=== PATIENT | male | born 1940 | race Caucasian/White ===

== ENCOUNTER → 2017-12-23 09:56 | Outpatient (CLI) | payer MEDICARE, OTHER, SELFPAY ==
[2017-12-23 11:16] LABS: BUN Creatinine Ratio 31.1 (6-22); Blood Urea Nitrogen 28 mg/dL (9-20); Calcium 8.8 mg/dL (8.4-10.2); Carbon Dioxide 34 mmol/L (22-32); Chloride 98 mmol/L (98-107); Estimated Glomerular Filt Rate > 60.0 mL/min (>60); Glucose 138 mg/dL (80-110); HEMOLYSIS < 15 (0-50); Sodium 142 mmol/L (137-145)
== END ==
PROVIDERS: PCP Internal Medicine; Visit Provider Internal Medicine Cardiovascular Disease
DX: I10 Essential (primary) hypertension (principal)
CPT/HCPCS: 36415; 80048

== ENCOUNTER → 2018-01-14 07:47 | Outpatient (CLI) | payer MEDICARE, OTHER, SELFPAY ==
--- NOTE | 2018-01-14 07:53 | DI.RAD.S_ITS ---
PROCEDURE: XR KUB INDICATIONS: KIDNEY STONES TECHNIQUE: One view of the abdomen acquired. COMPARISON: [facility], , KUB XRAY (1 VIEW ABDOMEN), 05/13/2017, 8:08. FINDINGS: Surgical changes and devices: Prostate radiation seeds project over the lower pelvis/pubic symphysis.. Bowel: Bowel gas pattern is normal. Soft tissues: 0.6 cm rounded calcification projecting over the right renal silhouette/hemiabdomen. Visualized solid organ contours appear normal in size. Bones: No suspicious bony lesions. IMPRESSION: 0.6 cm rounded calcification projecting over the right renal silhouette/hemiabdomen, which may represent a nephrolith. Dictated by: Anshu Wu M.D. on 01/14/2018 at 8:36 Approved by: Anshu Wu M.D. on 01/14/2018 at 8:41
[2018-01-14 09:18] LABS: Prostate Specific Antigen < 0.064 ng/mL (0.10-4.00)
== END ==
PROVIDERS: PCP Internal Medicine; Visit Provider Specialist
DX: N20.0 Calculus of kidney (principal); N40.1 Benign prostatic hyperplasia with lower urinary tract symptoms
CPT/HCPCS: 36415; 74018; 84153

== ENCOUNTER 2018-02-04 11:43 | Emergency (ER) | payer MEDICARE, OTHER, SELFPAY ==
[2018-02-04 11:46] VITALS: BP 151/91; PULSE 68; RESP 18; TEMP 36.8; O2SAT 95
--- NOTE | 2018-02-04 12:47 | ED_ITS ---
HPI - Weakness General Chief complaint: Weakness Stated complaint: IRREGULAR HEART RATE AND FEELING WEAK Time Seen by Provider: 02/04/18 12:45 Source: patient Mode of arrival: ambulatory Limitations: no limitations History of Present Illness HPI Narrative: 77-year-old male here for evaluation of palpitations and weakness this morning. He states that it was a fairly sudden onset. He states that he started to improve while sitting in the emergency department waiting room. Denies any chest pain or shortness of breath or lightheadedness or headache or vision changes. States that he has had a ?arrhythmia? in the past but was told by his treating and pumping supervisor that everything was fine. Patient called his primary care doctor's office and the nurse there told him to come to the emergency department. He states that while at home when he was feeling the irregular heartbeat he put himself on his home monitor and said that the heart rate was ?slow? and irregular. Related Data Home Medications Medication Instructions Recorded Confirmed ibuprofen [Advil] 200 mg PO Q4HP PRN #0 09/13/17 loratadine [Claritin] 10 mg PO QDAYP PRN #0 09/13/17 felodipine 1 tab PO DAILY 02/04/18 02/04/18 furosemide 20 mg PO DAILY 02/04/18 02/04/18 Previous Rx's Medication Instructions Recorded ASPIRIN (Aspir-Low) 81 mg PO QDAY 30 Days #0 09/26/12 nitroglycerin [Nitrostat] 0.4 mg SUBLINGUAL PRN PRN #1 bot 02/15/17 pantoprazole 40 mg PO QDAY #90 tab 02/20/17 fluticasone-salmeterol [Advair 1 puff INH BID #14 dose 07/15/17 Diskus] atorvastatin 40 mg PO QDAY #90 tab 08/05/17 albuterol sulfate [Proventil HFA] 2 puff INH QIDP #8.5 gm 10/07/17 levothyroxine 75 mcg tablet 75 mcg PO QAM #90 tab 12/03/17 hydrocodone 5 mg-acetaminophen 325 2 tab PO Q4HP PRN #60 tab 12/24/17 mg tablet Allergies Allergy/AdvReac Type Severity Reaction Status Date / Time carvedilol [CARVEDILOL] AdvReac Intermediate fatigue Unverified 10/02/17 12:12 felodipine AdvReac Intermediate fatigue Verified 12/04/17 08:52 losartan [LOSARTAN] AdvReac Intermediate fatigue Unverified 10/02/17 12:12 metoprolol [METOPROLOL] AdvReac Intermediate fatigue Unverified 10/02/17 12:12 valsartan [VALSARTAN] AdvReac Intermediate fatigue Unverified 10/02/17 12:12 amlodipine [AMLODIPINE] AdvReac Mild EDEMA Unverified 10/02/17 12:12 lisinopril [LISINOPRIL] AdvReac Mild HIVES/ Unverified 12/04/17 08:53 ITCHING Review of Systems Constitutional Reports fatigue, Denies fever(s), Denies headache(s) and Reports malaise ENT Ears, Nose, Mouth, and Throat: Denies headache(s) Cardiovascular Denies chest pain, Denies diaphoresis, Denies syncope, Denies rapid heart rate, Reports irregular heart rhythm, Denies leg edema, Reports palpitations, Denies dyspnea and Reports slow heart rate Respiratory Denies cough, Denies dyspnea and Denies wheezing Gastrointestinal Gastrointestinal: Denies abdominal pain, Denies nausea and Denies vomiting Genitourinary Denies dysuria Musculoskeletal Denies myalgias and Denies arthralgias Integumentary/Breasts Denies lesions and Denies rash Neurologic Denies confusion, Denies syncope and Denies headache(s) Psychiatric Denies confusion Endocrine Reports fatigue and Reports palpitations Hematologic/Lymphatic Denies easy bleeding and Denies easy bruising Allergic/Immunologic Denies wheezing [facility] Medical History Malignant neoplasm of prostate (Chronic 02/18/12) Essential hypertension (Chronic 02/18/12) Mixed hyperlipidemia (Chronic 02/18/12) Mild intermittent asthma without complication (Chronic 02/18/12) Gastroesophageal reflux disease without esophagitis (Chronic 02/18/12) History of renal calculi (Chronic 06/23/12) Anxiety (Chronic 06/23/12) Impotence (Chronic 06/23/12) Acquired hypothyroidism (Chronic 06/23/12) 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) Surgical History History of angioplasty (08/18/12) Family History Father Heart disease Mother Heart disease Social History Smoking Status: Never smoker Exam Initial Vital Signs Initial Vital Signs: Vital Signs Temperature 98.2 F 02/04/18 11:46 Pulse Rate 68 02/04/18 11:46 Respiratory Rate 18 02/04/18 11:46 Blood Pressure 151/91 H 02/04/18 11:46 Pulse Oximetry 95 02/04/18 11:46 Const General: cooperative, healthy appearing, comfortable, well developed, well groomed and No acute distress Orientation: alert and oriented x3 HENMT Head: normal to inspection and normocephalic Resp Effort & Inspection: normal respiratory effort Auscultation: clear to auscultation bilaterally Cardio Rate: regular rate Rhythm: regular rhythm Heart Sounds: no murmurs Pulses: radial pulses present GI Inspection: non-distended Palpation: soft, No firm and No tender Skin Lesions: no lesions Rashes: no rashes Neuro General: alert, awake and oriented x3 Cognition: normal cognition Speech: speech normal Motor: muscle tone normal throughout Sensory Exam: no sensory deficits noted Extrem General: normal to inspection and capillary refill normal Psych Appearance: grossly normal and well kempt Course Orders Ordered: ED Orders 02/04/18 12:47 EKG-12 Lead Stat 02/04/18 13:00 Basic Metabolic Panel Stat Complete Blood Count AUTO DIFF Stat Thyroid Stimulating Hormone Stat Troponin I Stat Vital Signs - 8 hr 02/04/18 11:46 02/04/18 12:58 02/04/18 13:36 Temperature 98.2 F Pulse Rate 68 63 74 Respiratory Rate 18 11 L 17 Blood Pressure 151/91 H Blood Pressure [Left Arm] 159/76 H 147/75 H Pulse Oximetry 95 96 96 MDM - Weakness Lab Data Attestation: I reviewed the patient's lab results. Result diagrams: 02/04/18 13:00 02/04/18 13:00 Lab Results 02/04/18 02/04/18 02/04/18 Range/Units 13:00 13:00 13:00 WBC 5.0 (4.5-11.0) X10^3/uL RBC 4.70 (4.5-5.9) X10^6/uL Hgb 15.6 (13.5-17.5) g/dL Hct 45.1 (41-53) % MCV 96.0 (80-100) fL MCH 33.1 (26-34) PG MCHC 34.5 (30-36) % RDW 12.8 (11.6-14.8) % Plt Count 167 (150-400) X10^3/uL Neut % (Auto) 58.7 (50-75) % Lymph % (Auto) 29.2 (25-40) % Nolan % (Auto) 9.7 (3-14) % Eos % (Auto) 1.5 L (2-4) % Baso % (Auto) 0.9 (0-2) % Neut # (Auto) 3000 (0404-6308) /uL Sodium 140 (137-145) mmol/L Potassium 4.0 (3.4-5.1) mmol/L Chloride 99 (98-107) mmol/L Carbon Dioxide 33 H (22-32) mmol/L BUN 21 H (9-20) mg/dL Creatinine 1.00 (0.66-1.25) mg/dL Estimated GFR > 60.0 (>60) mL/min BUN/Creatinine Ratio 21.0 (6-22) Glucose 100 (80-110) mg/dL Calcium 9.2 (8.4-10.2) mg/dL Troponin I < 0.012 (0.01-0.034) ng/mL TSH 2.33 (0.47-4.68) uIU/mL ECG Data Attestation: I personally reviewed and interpreted this ECG as follows: Prior ECG tracings: not available for review Interpretation: Sinus rhythm Ventricular rate is 70 Normal QRS Normal QTC Occasional PACs No ST T wave changes MDM Narrative Medical decision making narrative: Patient symptom free while here in the emergency department. Denied any chest pain or dizziness or lightheadedness or shortness of breath during these episodes. Has had a history of ?arrhythmia in the past. EKG relatively unremarkable. I discussed all this with the patient. He is going to continue all of his medications as directed. He is going to call his treating and pumping supervisor to discuss the indications for a Holter monitor. He was given return precautions. He expressed understanding and agreement with plan Discharge Plan Departure Patient Disposition: Home, Self-Care Clinical Impression: Palpitations Instructions: DI for Palpitations Activity Restrictions/Additional Instructions: Continue all of your medications as directed. Contact your treating and pumping supervisor to discuss the indications for a Holter monitor. Return to the emergency department at any point for new symptoms, lightheadedness, chest pain, shortness of breath, passing out, or any other concerning symptoms. Prescriptions: No Action ASPIRIN (Aspir-Low) 81 mg PO QDAY 30 Days Qty: 0 RF: 0 nitroglycerin [Nitrostat] 0.4 MG tablet, sublingual 0.4 mg Sublingual PRN PRNQty: 1 RF: 1 pantoprazole 40 MG tablet,delayed release (DR/EC) 40 mg PO QDAY Qty: 90 RF: 3 fluticasone-salmeterol [Advair Diskus] 250 MCG/50 MCG blister with device 1 puff INH BID Qty: 14 RF: 3 atorvastatin 40 MG tablet 40 mg PO QDAY Qty: 90 RF: 3 loratadine [Claritin] 10 MG tablet 10 mg PO QDAYP PRNQty: 0 RF: 0 ibuprofen [Advil] 200 MG tablet 200 mg PO Q4HP PRNQty: 0 RF: 0 albuterol sulfate [Proventil HFA] 90 MCG/PUFF HFA aerosol inhaler 2 puff INH QIDP Qty: 8.5 RF: 0 levothyroxine [Synthroid] 75 mcg tablet 75 mcg PO QAM Qty: 90 RF: 1 hydrocodone-acetaminophen [[place]] 5-325 mg tablet 2 tab PO Q4HP PRN (Reason: pain) Qty: 60 RF: 0 felodipine 5 mg tablet extended release 24 hr 1 tab PO DAILY RF: 0 furosemide 20 mg tablet 20 mg PO DAILY RF: 0
[2018-02-04 12:58] VITALS: BP 159/76; PULSE 63; RESP 11; O2SAT 96
[2018-02-04 13:29] LABS: Add Manual Diff / Slide Review NO; Basophils Percent Auto 0.9 % (0-2); Eosinophils Percent Auto 1.5 % (2-4); Hematocrit 45.1 % (41-53); Hemoglobin 15.6 g/dL (13.5-17.5); Lymphocytes Percent Auto 29.2 % (25-40); Mean Corpuscular HGB Conc 34.5 % (30-36); Mean Corpuscular Hemoglobin 33.1 PG (26-34); Monocytes Percent Auto 9.7 % (3-14); Neutrophils Absolute Auto 3000 /uL (3000-5900); Neutrophils Percent Auto 58.7 % (50-75); Platelet Count 167 X10^3/uL (150-400); Red Cell Distribution Width 12.8 % (11.6-14.8)
[2018-02-04 13:31] LABS: Blood Urea Nitrogen 21 mg/dL (9-20); Calcium 9.2 mg/dL (8.4-10.2); Carbon Dioxide 33 mmol/L (22-32); Chloride 99 mmol/L (98-107); Estimated Glomerular Filt Rate > 60.0 mL/min (>60); Glucose 100 mg/dL (80-110); HEMOLYSIS < 15 (0-50); Sodium 140 mmol/L (137-145)
[2018-02-04 13:36] VITALS: BP 147/75; PULSE 74; RESP 17; O2SAT 96
[2018-02-04 14:00] VITALS: BP 153/76; PULSE 73; RESP 22; O2SAT 95
[2018-02-04 14:08] LABS: Thyroid Stimulating Hormone 2.33 uIU/mL (0.47-4.68)
[2018-02-04 14:10] LABS: Troponin I < 0.012 ng/mL (0.01-0.034)
== END 2018-02-04 14:40 | disposition home or self-care (01) ==
PROVIDERS: Emergency Provider Emergency Medicine; PCP Internal Medicine
DX: R00.2 Palpitations (principal)
CPT/HCPCS: 36591; 80048; 84443; 84484; 85025; 93005; 93010; 99283; 99284

== ENCOUNTER → 2018-02-19 09:30 | Outpatient (CLI) | payer SELFPAY ==
--- NOTE | 2018-03-27 09:55 | PM.CARDMON.1 ---
Senior Technical Business Analyst Report Referral & Results Date Patient Seen: 02/19/18 Requesting provider: Bakari Arrington Indication: Arrhythmia and bradycardia Duration of monitoring (days): 12 Diary information: No patient diary entries, there are 12 triggered events associated with sinus rhythm PVCs PACs, ventricular bigeminy and ventricular trigeminy Data: Minimum heart rate identified was 45 beats per minute at 10:38 on 03/01/2018 Maximum sinus heart rate was 105 beats per minute at 19:02 on 02/24/2018 Maximum overall heart rate was 125 beats per minute at 22:08 on 02/24/2018 associated with a brief run of SVT 1.3% of identified heartbeats were supraventricular ectopic in origin and 6.6% were ventricular ectopic in origin Impression: No serious dysrhythmias identified. Patient with some significant PVCs including up to almost minute half run of ventricular bigeminy. Patient triggered events seem to be associated primarily with ventricular premature depolarizations Clinical correlation suggested
--- NOTE | 2018-03-27 09:58 | P.HOLT.S_ITS ---
Recycling Tech Report Referral & Results Date Patient Seen: 02/19/18 Requesting provider: Bakari Arrington Indication: Arrhythmia and bradycardia Duration of monitoring (days): 12 Diary information: No patient diary entries, there are 12 triggered events associated with sinus rhythm PVCs PACs, ventricular bigeminy and ventricular trigeminy Data: Minimum heart rate identified was 45 beats per minute at 10:38 on 2017 Maximum sinus heart rate was 105 beats per minute at 19:02 on 02/24/2018 Maximum overall heart rate was 125 beats per minute at 22:08 on 02/24/2018 associated with a brief run of SVT 1.3% of identified heartbeats were supraventricular ectopic in origin and 6.6% were ventricular ectopic in origin Impression: No serious dysrhythmias identified. Patient with some significant PVCs including up to almost minute half run of ventricular bigeminy. Patient triggered events seem to be associated primarily with ventricular premature depolarizations Clinical correlation suggested
== END ==
PROVIDERS: PCP Internal Medicine; Visit Provider Internal Medicine
DX: I49.9 Cardiac arrhythmia, unspecified (principal)

== ENCOUNTER 2018-02-22 10:30 | Emergency (ER) | payer MEDICARE, OTHER, SELFPAY ==
[2018-02-22] VITALS (9 sets, daily range): BP systolic 103–169; BP diastolic 48–88; PULSE 58–95; RESP 14–22; TEMP 36.6; O2SAT 95–99
--- NOTE | 2018-02-22 10:43 | DI.RAD.S_ITS ---
PROCEDURE: XR CHEST 1V INDICATIONS: chest pain TECHNIQUE: One view of the chest was acquired. COMPARISON: None. FINDINGS: Surgical changes and devices: Pacer device is projected over the left hemithorax. Lungs and pleura: No pleural effusions or pneumothorax. Lungs are clear. Mediastinum: Mediastinal contours appear normal. Heart size is normal. Bones and chest wall: No suspicious bony lesions. Overlying soft tissues appear unremarkable. IMPRESSION: No acute cardiopulmonary findings. Dictated by: Evita Dale M.D. on 02/22/2018 at 11:27 Approved by: Evita Dale M.D. on 02/22/2018 at 11:28
[2018-02-22 11:03] LABS: Add Manual Diff / Slide Review NO; Basophils Percent Auto 0.8 % (0-2); Eosinophils Percent Auto 1.3 % (2-4); Hematocrit 45.1 % (41-53); Hemoglobin 15.7 g/dL (13.5-17.5); Lymphocytes Percent Auto 29.5 % (25-40); Mean Corpuscular HGB Conc 34.7 % (30-36); Mean Corpuscular Hemoglobin 33.3 PG (26-34); Mean Corpuscular Volume 95.9 fL (80-100); Neutrophils Absolute Auto 3300 /uL (3000-5900); Neutrophils Percent Auto 60.4 % (50-75); Platelet Count 155 X10^3/uL (150-400); Red Blood Cell Count 4.71 X10^6/uL (4.5-5.9); Red Cell Distribution Width 12.6 % (11.6-14.8); White Blood Cell Count 5.4 X10^3/uL (4.5-11.0)
[2018-02-22 11:09] LABS: INR 1.1 (0.9-1.3)
[2018-02-22 11:11] LABS: PTT Partial Thromboplastin Tim 29 SECONDS (26.4-36.2)
[2018-02-22 11:17] LABS: Alanine Aminotransferase 31 IU/L (21-72); Albumin Globulin Ratio 1.4 (1.0-2.8); Alkaline Phosphatase 80 U/L (38-126); Aspartate Aminotransferase 26 IU/L (17-59); Bilirubin Total 0.8 mg/dL (0.2-1.3); Blood Urea Nitrogen 23 mg/dL (9-20); Calcium 9.2 mg/dL (8.4-10.2); Carbon Dioxide 31 mmol/L (22-32); Chloride 103 mmol/L (98-107); Creatine Kinase 62 U/L (55-170); Estimated Glomerular Filt Rate > 60.0 mL/min (>60); Globulin 2.8 g/dL (1.7-4.1); Glucose 123 mg/dL (80-110); HEMOLYSIS 15 (0-50); Lipase 40 U/L (23-300); Sodium 142 mmol/L (137-145); Total Protein 6.8 g/dL (6.3-8.2)
[2018-02-22 11:31] LABS: Troponin I < 0.012 ng/mL (0.01-0.034)
--- NOTE | 2018-02-22 11:35 | ED.WEAKNESS ---
HPI - Weakness General Chief complaint: Weakness Stated complaint: heart beating in the 30s Time Seen by Provider: 02/22/18 11:15 History of Present Illness HPI Narrative: Patient is a 77-year-old male who presents with lightheadedness dizziness and a low heart rate. He actually it is Xeno patch placed 2 days ago for palpitations yesterday and today he has had episodes where he has felt extremely lightheaded never passed out weakness blood pressure and his heart rate and noted that his heart rate is in the 30s. He has never passed out. He denies chest pain he does get some shortness of breath he has these episodes. He has 3 recordings which were this morning at 5 or a.m., at 10:04 a.m. and 10:06 a.m.. His heart rate seems to be within normal limits here in the emergency department MD Complaint: generalized weakness Related Data Home Medications Medication Instructions Recorded Confirmed ibuprofen [Advil] 200 mg PO Q4HP PRN #0 09/13/17 02/06/18 loratadine [Claritin] 10 mg PO QDAYP PRN #0 09/13/17 02/06/18 furosemide 20 mg PO DAILY 02/04/18 02/06/18 Previous Rx's Medication Instructions Recorded ASPIRIN (Aspir-Low) 81 mg PO QDAY 30 Days #0 09/26/12 nitroglycerin [Nitrostat] 0.4 mg SUBLINGUAL PRN PRN #1 bot 02/15/17 pantoprazole 40 mg PO QDAY #90 tab 02/20/17 fluticasone-salmeterol [Advair 1 puff INH BID #14 dose 07/15/17 Diskus] atorvastatin 40 mg PO QDAY #90 tab 08/05/17 albuterol sulfate [Proventil HFA] 2 puff INH QIDP #8.5 gm 10/07/17 levothyroxine 75 mcg tablet 75 mcg PO QAM #90 tab 12/03/17 hydrocodone 5 mg-acetaminophen 325 2 tab PO Q4HP PRN #60 tab 12/24/17 mg tablet Allergies Allergy/AdvReac Type Severity Reaction Status Date / Time carvedilol [CARVEDILOL] AdvReac Intermediate fatigue Verified 02/22/18 10:43 felodipine AdvReac Intermediate fatigue Verified 02/22/18 10:43 losartan [LOSARTAN] AdvReac Intermediate fatigue Verified 02/22/18 10:43 metoprolol [METOPROLOL] AdvReac Intermediate fatigue Verified 02/22/18 10:43 valsartan [VALSARTAN] AdvReac Intermediate fatigue Verified 02/22/18 10:43 amlodipine [AMLODIPINE] AdvReac Mild EDEMA Verified 02/22/18 10:43 lisinopril [LISINOPRIL] AdvReac Mild HIVES/ Verified 02/22/18 10:43 ITCHING Review of Systems Review of Systems All systems reviewed & are unremarkable except as noted in HPI and below Constitutional Denies chills, Denies fever(s), Denies lethargy and Denies weakness Eyes Denies change in vision, Denies eye discharge, Denies irritation and Denies loss of vision ENT Ears, Nose, Mouth, and Throat: Denies change in voice, Denies neck pain and Denies sore throat Cardiovascular Denies syncope, Reports lightheadedness, Denies dyspnea and Denies dyspnea on exertion Respiratory Denies cough, Denies dyspnea, Denies dyspnea on exertion and Denies wheezing Gastrointestinal Gastrointestinal: Denies abdominal pain, Denies change in bowel habits, Denies diarrhea, Denies nausea and Denies vomiting Genitourinary Denies hematuria, Denies flank pain, Denies urinary incontinence and Denies urinary urgency Musculoskeletal Denies neck pain Integumentary/Breasts Denies pruritus, Denies erythema, Denies rash and Denies wounds Neurologic Denies syncope, Denies loss of vision and Denies weakness Allergic/Immunologic Denies wheezing [facility] Medical History 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/12) Mixed hyperlipidemia (Chronic 02/18/12) Essential hypertension (Chronic 02/18/12) Acquired hypothyroidism (Chronic 08/21/07) Colon polyps (Resolved 2001) Erectile dysfunction (Chronic 1997) Panic attacks (Chronic 1969) Degenerative lumbar disc (Chronic 1964) Diastasis recti (Chronic) Chronic back pain (Chronic 1989) Hayfever (Chronic 1967) Osteoarthritis (Chronic) Plantar fasciitis (Chronic) Hearing loss (Chronic) Malignant neoplasm of prostate (Inactive 2005) Mild intermittent asthma without complication (Chronic 02/18/12) Gastroesophageal reflux disease without esophagitis (Chronic 1983) History of renal calculi (Chronic 06/23/12) Anxiety (Chronic 06/23/12) Impotence (Chronic 06/23/12) Cataract (Resolved) Chicken pox (Resolved) Frequent UTI (Resolved) History of brachytherapy (Resolved 2006) Measles (Resolved) Mumps (Resolved) Myocardial infarction (Resolved 2012) Normal cardiac stress test (Resolved 2002) Surgical History History of YAG laser capsulotomy of lens (Resolved) History of angioplasty (Resolved 08/18/12) History of colonoscopy with polypectomy (Resolved 2001) History of esophagogastroduodenoscopy (EGD) (Resolved 1995) History of tonsillectomy (Resolved 1944) History of vasectomy (Resolved 1976) Normal colonoscopy (Resolved 1984) Status post laser cataract surgery of both eyes (Resolved 2005) Social History Smoking Status: Never smoker Exam Initial Vital Signs Initial Vital Signs: Vital Signs Temperature 97.8 F 02/22/18 10:41 Pulse Rate 74 02/22/18 10:41 Respiratory Rate 14 02/22/18 10:41 Blood Pressure 169/88 H 02/22/18 10:41 Pulse Oximetry 99 02/22/18 10:41 GENERAL: Alert well-appearing and in no acute distress. HEENT: Head atraumatic,EOMI, pupils reactive, CARDIOVASCULAR: Regular rate and rhythm without murmurs, rubs or gallops. RESPIRATORY: Breath sounds equal bilaterally, no wheezes rales or rhonchi. ABDOMEN: Soft, nontender. Normoactive bowel sounds all 4 quadrants. No guarding or rebound. : No CVA tenderness EXTREMITIES: Normal range of motion, no clubbing or edema. Neurovascularly intact NEUROLOGICAL: Alert and oriented x4.Normal gait and speech. Cranial nerves II through XII grossly intact. SKIN: Warm, dry, no laceration, no petechiae, no rashes or lesions. Course Orders Ordered: ED Orders 02/22/18 10:43 XR chest 1V Stat EKG-12 Lead Stat 02/22/18 10:56 BNP [B Type Natriuretic Peptide] Stat Complete Blood Count AUTO DIFF Stat Comprehensive Metabolic Panel Stat Lipase Stat Partial Thromboplastin Time Stat Prothrombin Time INR Stat Troponin & CK Cardiac Panel Stat 09/01/18 10:59 Thyroid Stimulating Hormone Stat Discontinued Medications Hydrocodone Bitart/Acetaminophen ([place] 5/325) 1 tab PO NOW ONE Stop: 02/22/18 15:44 Last Admin: 02/22/18 15:47 Dose: 1 tab Consultations Consultation #1: Dr. Shi cardiology has been updated patient's symptoms and test results. Agrees that patient needs to be observed on tele. Dr. Storey is his physician is happy to have the hospitalist accept him over at [facility], if [place] [facility] unable to Time: 13:52 Consultation #2: I spoke with Dr. Arrington, the patient's primary physician he does agree that patient would best be suited all over at [facility] for pacemaker if needed Consultation #3: Dr. Nuno hospitalist over at [facility] has happily accepted patient. Vital Signs - 8 hr 02/22/18 10:41 02/22/18 10:58 02/22/18 11:17 Temperature 97.8 F Pulse Rate 74 74 67 Respiratory Rate 14 18 20 Blood Pressure 169/88 H Blood Pressure [Left Arm] 149/72 H 103/67 Pulse Oximetry 99 97 97 02/22/18 12:18 02/22/18 13:46 02/22/18 14:15 Temperature Pulse Rate 74 58 L 71 Respiratory Rate 18 16 18 Blood Pressure Blood Pressure [Left Arm] 148/59 H 152/72 H 140/62 Pulse Oximetry 95 98 95 02/22/18 15:19 02/22/18 16:30 Temperature Pulse Rate 69 95 H Respiratory Rate 22 16 Blood Pressure Blood Pressure [Left Arm] 140/52 L 147/48 H Pulse Oximetry 95 96 MDM - Weakness Lab Data Attestation: I reviewed the patient's lab results. Result diagrams: 02/22/18 10:56 02/22/18 10:56 Lab Results 02/22/18 02/22/18 02/22/18 Range/Units 10:56 10:56 10:56 WBC 5.4 (4.5-11.0) X10^3/uL RBC 4.71 (4.5-5.9) X10^6/uL Hgb 15.7 (13.5-17.5) g/dL Hct 45.1 (41-53) % MCV 95.9 (80-100) fL MCH 33.3 (26-34) PG MCHC 34.7 (30-36) % RDW 12.6 (11.6-14.8) % Plt Count 155 (150-400) X10^3/uL Neut % (Auto) 60.4 (50-75) % Lymph % (Auto) 29.5 (25-40) % Ward % (Auto) 8.0 (3-14) % Eos % (Auto) 1.3 L (2-4) % Baso % (Auto) 0.8 (0-2) % Neut # (Auto) 3300 (3531-2393) /uL PT 12.0 (10.1-12.7) SECONDS INR 1.1 (0.9-1.3) APTT 29 (26.4-36.2) SECONDS Sodium 142 (137-145) mmol/L Potassium 4.0 (3.4-5.1) mmol/L Chloride 103 (98-107) mmol/L Carbon Dioxide 31 (22-32) mmol/L BUN 23 H (9-20) mg/dL Creatinine 1.00 (0.66-1.25) mg/dL Estimated GFR > 60.0 (>60) mL/min BUN/Creatinine Ratio 23.0 H (6-22) Glucose 123 H (80-110) mg/dL Calcium 9.2 (8.4-10.2) mg/dL Total Bilirubin 0.8 (0.2-1.3) mg/dL AST 26 (17-59) IU/L ALT 31 (21-72) IU/L Alkaline Phosphatase 80 (38-126) U/L Total Creatine Kinase 62 (55-170) U/L Troponin I < 0.012 (0.01-0.034) ng/mL B-Natriuretic Peptide (<100) Total Protein 6.8 (6.3-8.2) g/dL Albumin 4.0 (3.5-5.0) g/dL Globulin 2.8 (1.7-4.1) g/dL Albumin/Globulin Ratio 1.4 (1.0-2.8) Lipase 40 (23-300) U/L TSH (0.47-4.68) uIU/mL 02/22/18 02/22/18 Range/Units 10:56 10:59 WBC (4.5-11.0) X10^3/uL RBC (4.5-5.9) X10^6/uL Hgb (13.5-17.5) g/dL Hct (41-53) % MCV (80-100) fL MCH (26-34) PG MCHC (30-36) % RDW (11.6-14.8) % Plt Count (150-400) X10^3/uL Neut % (Auto) (50-75) % Lymph % (Auto) (25-40) % Ward % (Auto) (3-14) % Eos % (Auto) (2-4) % Baso % (Auto) (0-2) % Neut # (Auto) (2447-9896) /uL PT (10.1-12.7) SECONDS INR (0.9-1.3) APTT (26.4-36.2) SECONDS Sodium (137-145) mmol/L Potassium (3.4-5.1) mmol/L Chloride (98-107) mmol/L Carbon Dioxide (22-32) mmol/L BUN (9-20) mg/dL Creatinine (0.66-1.25) mg/dL Estimated GFR (>60) mL/min BUN/Creatinine Ratio (6-22) Glucose (80-110) mg/dL Calcium (8.4-10.2) mg/dL Total Bilirubin (0.2-1.3) mg/dL AST (17-59) IU/L ALT (21-72) IU/L Alkaline Phosphatase (38-126) U/L Total Creatine Kinase (55-170) U/L Troponin I (0.01-0.034) ng/mL B-Natriuretic Peptide 64.1 (<100) Total Protein (6.3-8.2) g/dL Albumin (3.5-5.0) g/dL Globulin (1.7-4.1) g/dL Albumin/Globulin Ratio (1.0-2.8) Lipase (23-300) U/L TSH 1.77 D (0.47-4.68) uIU/mL Imaging Data Chest x-ray: Radiologist's impression: PROCEDURE: XR CHEST 1V INDICATIONS: chest pain TECHNIQUE: One view of the chest was acquired. COMPARISON: None. FINDINGS: Surgical changes and devices: Pacer device is projected over the left hemithorax. Lungs and pleura: No pleural effusions or pneumothorax. Lungs are clear. Mediastinum: Mediastinal contours appear normal. Heart size is normal. Bones and chest wall: No suspicious bony lesions. Overlying soft tissues appear unremarkable. IMPRESSION: No acute cardiopulmonary findings. Dictated by: Evita Dale M.D. on 02/22/2018 at 11:27 ECG Data Attestation: I personally reviewed and interpreted this ECG as follows: Prior ECG tracings: available for review Interpretation: Sinus rhythm with PACs no ST changes or T-wave inversions similar to previous EKG. MDM Narrative Medical decision making narrative: Patient does have episodes of bradycardia but they seem to be PACs which do not perfused. The oxygen pulse ox and heart rate monitor her with both with good waveform show different readings. The pulse ox will show of heart rate in the 30s and the monitor shows frequent PAC. These are the times that he does feel dizzy and lightheaded. They do not last long enough to get a blood pressure so these are very brief episodes. Patient is not on any AV dionne blocking agents. Discharge Plan Departure Patient Disposition: [facility] Clinical Impression: Bradycardia Prescriptions: No Action ASPIRIN (Aspir-Low) 81 mg PO QDAY 30 Days Qty: 0 RF: 0 nitroglycerin [Nitrostat] 0.4 MG tablet, sublingual 0.4 mg Sublingual PRN PRNQty: 1 RF: 1 pantoprazole 40 MG tablet,delayed release (DR/EC) 40 mg PO QDAY Qty: 90 RF: 3 fluticasone-salmeterol [Advair Diskus] 250 MCG/50 MCG blister with device 1 puff INH BID Qty: 14 RF: 3 atorvastatin 40 MG tablet 40 mg PO QDAY Qty: 90 RF: 3 loratadine [Claritin] 10 MG tablet 10 mg PO QDAYP PRNQty: 0 RF: 0 ibuprofen [Advil] 200 MG tablet 200 mg PO Q4HP PRNQty: 0 RF: 0 albuterol sulfate [Proventil HFA] 90 MCG/PUFF HFA aerosol inhaler 2 puff INH QIDP Qty: 8.5 RF: 0 levothyroxine [Synthroid] 75 mcg tablet 75 mcg PO QAM Qty: 90 RF: 1 hydrocodone-acetaminophen [[place]] 5-325 mg tablet 2 tab PO Q4HP PRN (Reason: pain) Qty: 60 RF: 0 furosemide 20 mg tablet 20 mg PO DAILY RF: 0
[2018-02-22 11:50] LABS: B Type Natriuretic Peptide 64.1 (<100)
--- NOTE | 2018-02-22 13:20 | ED_ITS ---
HPI - Weakness General Chief complaint: Weakness Stated complaint: heart beating in the 30s Time Seen by Provider: 02/22/18 11:15 History of Present Illness HPI Narrative: Patient is a 77-year-old male who presents with lightheadedness dizziness and a low heart rate. He actually it is Xeno patch placed 2 days ago for palpitations yesterday and today he has had episodes where he has felt extremely lightheaded never passed out weakness blood pressure and his heart rate and noted that his heart rate is in the 30s. He has never passed out. He denies chest pain he does get some shortness of breath he has these episodes. He has 3 recordings which were this morning at 5 or a.m., at 10:04 a.m. and 10 :06 a.m.. His heart rate seems to be within normal limits here in the emergency department MD Complaint: generalized weakness Related Data Home Medications Medication Instructions Recorded Confirmed ibuprofen [Advil] 200 mg PO Q4HP PRN #0 09/13/17 02/06/18 loratadine [Claritin] 10 mg PO QDAYP PRN #0 09/13/17 02/06/18 furosemide 20 mg PO DAILY 02/04/18 02/06/18 Previous Rx's Medication Instructions Recorded ASPIRIN (Aspir-Low) 81 mg PO QDAY 30 Days #0 09/26/12 nitroglycerin [Nitrostat] 0.4 mg SUBLINGUAL PRN PRN #1 bot 02/15/17 pantoprazole 40 mg PO QDAY #90 tab 02/20/17 fluticasone-salmeterol [Advair 1 puff INH BID #14 dose 07/15/17 Diskus] atorvastatin 40 mg PO QDAY #90 tab 08/05/17 albuterol sulfate [Proventil HFA] 2 puff INH QIDP #8.5 gm 10/07/17 levothyroxine 75 mcg tablet 75 mcg PO QAM #90 tab 12/03/17 hydrocodone 5 mg-acetaminophen 325 2 tab PO Q4HP PRN #60 tab 12/24/17 mg tablet Allergies Allergy/AdvReac Type Severity Reaction Status Date / Time carvedilol [CARVEDILOL] AdvReac Intermediate fatigue Verified 02/22/18 10:43 felodipine AdvReac Intermediate fatigue Verified 02/22/18 10:43 losartan [LOSARTAN] AdvReac Intermediate fatigue Verified 02/22/18 10:43 metoprolol [METOPROLOL] AdvReac Intermediate fatigue Verified 02/22/18 10:43 valsartan [VALSARTAN] AdvReac Intermediate fatigue Verified 02/22/18 10:43 amlodipine [AMLODIPINE] AdvReac Mild EDEMA Verified 02/22/18 10:43 lisinopril [LISINOPRIL] AdvReac Mild HIVES/ Verified 02/22/18 10:43 ITCHING Review of Systems Review of Systems All systems reviewed & are unremarkable except as noted in HPI and below Constitutional Denies chills, Denies fever(s), Denies lethargy and Denies weakness Eyes Denies change in vision, Denies eye discharge, Denies irritation and Denies loss of vision ENT Ears, Nose, Mouth, and Throat: Denies change in voice, Denies neck pain and Denies sore throat Cardiovascular Denies syncope, Reports lightheadedness, Denies dyspnea and Denies dyspnea on exertion Respiratory Denies cough, Denies dyspnea, Denies dyspnea on exertion and Denies wheezing Gastrointestinal Gastrointestinal: Denies abdominal pain, Denies change in bowel habits, Denies diarrhea, Denies nausea and Denies vomiting Genitourinary Denies hematuria, Denies flank pain, Denies urinary incontinence and Denies urinary urgency Musculoskeletal Denies neck pain Integumentary/Breasts Denies pruritus, Denies erythema, Denies rash and Denies wounds Neurologic Denies syncope, Denies loss of vision and Denies weakness Allergic/Immunologic Denies wheezing [facility] Medical History 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 (Chronic 09/04/12) Mixed hyperlipidemia (Chronic 02/18/12) Essential hypertension (Chronic 02/18/12) Acquired hypothyroidism (Chronic 08/21/07) Colon polyps (Resolved 2001) Erectile dysfunction (Chronic 1997) Panic attacks (Chronic 1969) Degenerative lumbar disc (Chronic 1964) Diastasis recti (Chronic) Chronic back pain (Chronic 1989) Hayfever (Chronic 1967) Osteoarthritis (Chronic) Plantar fasciitis (Chronic) Hearing loss (Chronic) Malignant neoplasm of prostate (Inactive 2005) Mild intermittent asthma without complication (Chronic 02/18/12) Gastroesophageal reflux disease without esophagitis (Chronic 1983) History of renal calculi (Chronic 06/23/12) Anxiety (Chronic 06/23/12) Impotence (Chronic 06/23/12) Cataract (Resolved) Chicken pox (Resolved) Frequent UTI (Resolved) History of brachytherapy (Resolved 2006) Measles (Resolved) Mumps (Resolved) Myocardial infarction (Resolved 2012) Normal cardiac stress test (Resolved 2002) Surgical History History of YAG laser capsulotomy of lens (Resolved) History of angioplasty (Resolved 08/18/12) History of colonoscopy with polypectomy (Resolved 2001) History of esophagogastroduodenoscopy (EGD) (Resolved 1995) History of tonsillectomy (Resolved 1944) History of vasectomy (Resolved 1976) Normal colonoscopy (Resolved 1984) Status post laser cataract surgery of both eyes (Resolved 2005) Social History Smoking Status: Never smoker Exam Initial Vital Signs Initial Vital Signs: Vital Signs Temperature 97.8 F 02/22/18 10:41 Pulse Rate 74 02/22/18 10:41 Respiratory Rate 14 02/22/18 10:41 Blood Pressure 169/88 H 02/22/18 10:41 Pulse Oximetry 99 02/22/18 10:41 GENERAL: Alert well-appearing and in no acute distress. HEENT: Head atraumatic,EOMI, pupils reactive, CARDIOVASCULAR: Regular rate and rhythm without murmurs, rubs or gallops. RESPIRATORY: Breath sounds equal bilaterally, no wheezes rales or rhonchi. ABDOMEN: Soft, nontender. Normoactive bowel sounds all 4 quadrants. No guarding or rebound. : No CVA tenderness EXTREMITIES: Normal range of motion, no clubbing or edema. Neurovascularly intact NEUROLOGICAL: Alert and oriented x4.Normal gait and speech. Cranial nerves II through XII grossly intact. SKIN: Warm, dry, no laceration, no petechiae, no rashes or lesions. Course Orders Ordered: ED Orders 02/22/18 10:43 XR chest 1V Stat EKG-12 Lead Stat 02/22/18 10:56 BNP [B Type Natriuretic Peptide] Stat Complete Blood Count AUTO DIFF Stat Comprehensive Metabolic Panel Stat Lipase Stat Partial Thromboplastin Time Stat Prothrombin Time INR Stat Troponin & CK Cardiac Panel Stat 09/01/18 10:59 Thyroid Stimulating Hormone Stat Discontinued Medications Hydrocodone Bitart/Acetaminophen ([place] 5/325) 1 tab PO NOW ONE Stop: 02/22/18 15:44 Last Admin: 02/22/18 15:47 Dose: 1 tab Consultations Consultation #1: Dr. Shi cardiology has been updated patient's symptoms and test results. Agrees that patient needs to be observed on tele. Dr. Storey is his physician is happy to have the hospitalist accept him over at [facility], if [place] to Time: 13:52 Consultation #2: I spoke with Dr. Arrington, the patient's primary physician he does agree that patient would best be suited all over at [facility] for pacemaker if needed Consultation #3: Dr. Nuno hospitalist over at [facility] has happily accepted patient. Vital Signs - 8 hr 02/22/18 10:41 02/22/18 10:58 02/22/18 11:17 Temperature 97.8 F Pulse Rate 74 74 67 Respiratory Rate 14 18 20 Blood Pressure 169/88 H Blood Pressure [Left Arm] 149/72 H 103/67 Pulse Oximetry 99 97 97 02/22/18 12:18 02/22/18 13:46 02/22/18 14:15 Temperature Pulse Rate 74 58 L 71 Respiratory Rate 18 16 18 Blood Pressure Blood Pressure [Left Arm] 148/59 H 152/72 H 140/62 Pulse Oximetry 95 98 95 02/22/18 15:19 02/22/18 16:30 Temperature Pulse Rate 69 95 H Respiratory Rate 22 16 Blood Pressure Blood Pressure [Left Arm] 140/52 L 147/48 H Pulse Oximetry 95 96 MDM - Weakness Lab Data Attestation: I reviewed the patient's lab results. Result diagrams: 02/22/18 10:56 02/22/18 10:56 Lab Results 02/22/18 02/22/18 02/22/18 Range/Units 10:56 10:56 10:56 WBC 5.4 (4.5-11.0) X10^3/uL RBC 4.71 (4.5-5.9) X10^6/uL Hgb 15.7 (13.5-17.5) g/dL Hct 45.1 (41-53) % MCV 95.9 (80-100) fL MCH 33.3 (26-34) PG MCHC 34.7 (30-36) % RDW 12.6 (11.6-14.8) % Plt Count 155 (150-400) X10^3/uL Neut % (Auto) 60.4 (50-75) % Lymph % (Auto) 29.5 (25-40) % [place] % (Auto) 8.0 (3-14) % Eos % (Auto) 1.3 L (2-4) % Baso % (Auto) 0.8 (0-2) % Neut # (Auto) 3300 (2744-1947) /uL PT 12.0 (10.1-12.7) SECONDS INR 1.1 (0.9-1.3) APTT 29 (26.4-36.2) SECONDS Sodium 142 (137-145) mmol/L Potassium 4.0 (3.4-5.1) mmol/L Chloride 103 (98-107) mmol/L Carbon Dioxide 31 (22-32) mmol/L BUN 23 H (9-20) mg/dL Creatinine 1.00 (0.66-1.25) mg/dL Estimated GFR > 60.0 (>60) mL/min BUN/Creatinine Ratio 23.0 H (6-22) Glucose 123 H (80-110) mg/dL Calcium 9.2 (8.4-10.2) mg/dL Total Bilirubin 0.8 (0.2-1.3) mg/dL AST 26 (17-59) IU/L ALT 31 (21-72) IU/L Alkaline Phosphatase 80 (38-126) U/L Total Creatine Kinase 62 (55-170) U/L Troponin I < 0.012 (0.01-0.034) ng/mL B-Natriuretic Peptide (<100) Total Protein 6.8 (6.3-8.2) g/dL Albumin 4.0 (3.5-5.0) g/dL Globulin 2.8 (1.7-4.1) g/dL Albumin/Globulin Ratio 1.4 (1.0-2.8) Lipase 40 (23-300) U/L TSH (0.47-4.68) uIU/mL 02/22/18 02/22/18 Range/Units 10:56 10:59 WBC (4.5-11.0) X10^3/uL RBC (4.5-5.9) X10^6/uL Hgb (13.5-17.5) g/dL Hct (41-53) % MCV (80-100) fL MCH (26-34) PG MCHC (30-36) % RDW (11.6-14.8) % Plt Count (150-400) X10^3/uL Neut % (Auto) (50-75) % Lymph % (Auto) (25-40) % [place] % (Auto) (3-14) % Eos % (Auto) (2-4) % Baso % (Auto) (0-2) % Neut # (Auto) (2320-7434) /uL PT (10.1-12.7) SECONDS INR (0.9-1.3) APTT (26.4-36.2) SECONDS Sodium (137-145) mmol/L Potassium (3.4-5.1) mmol/L Chloride (98-107) mmol/L Carbon Dioxide (22-32) mmol/L BUN (9-20) mg/dL Creatinine (0.66-1.25) mg/dL Estimated GFR (>60) mL/min BUN/Creatinine Ratio (6-22) Glucose (80-110) mg/dL Calcium (8.4-10.2) mg/dL Total Bilirubin (0.2-1.3) mg/dL AST (17-59) IU/L ALT (21-72) IU/L Alkaline Phosphatase (38-126) U/L Total Creatine Kinase (55-170) U/L Troponin I (0.01-0.034) ng/mL B-Natriuretic Peptide 64.1 (<100) Total Protein (6.3-8.2) g/dL Albumin (3.5-5.0) g/dL Globulin (1.7-4.1) g/dL Albumin/Globulin Ratio (1.0-2.8) Lipase (23-300) U/L TSH 1.77 D (0.47-4.68) uIU/mL Imaging Data Chest x-ray: Radiologist's impression: PROCEDURE: XR CHEST 1V INDICATIONS: chest pain TECHNIQUE: One view of the chest was acquired. COMPARISON: None. FINDINGS: Surgical changes and devices: Pacer device is projected over the left hemithorax. Lungs and pleura: No pleural effusions or pneumothorax. Lungs are clear. Mediastinum: Mediastinal contours appear normal. Heart size is normal. Bones and chest wall: No suspicious bony lesions. Overlying soft tissues appear unremarkable. IMPRESSION: No acute cardiopulmonary findings. Dictated by: Evita Dale M.D. on 02/22/2018 at 11:27 ECG Data Attestation: I personally reviewed and interpreted this ECG as follows: Prior ECG tracings: available for review Interpretation: Sinus rhythm with PACs no ST changes or T-wave inversions similar to previous EKG. MDM Narrative Medical decision making narrative: Patient does have episodes of bradycardia but they seem to be PACs which do not perfused. The oxygen pulse ox and heart rate monitor her with both with good waveform show different readings. The pulse ox will show of heart rate in the 30s and the monitor shows frequent PAC. These are the times that he does feel dizzy and lightheaded. They do not last long enough to get a blood pressure so these are very brief episodes. Patient is not on any AV dionen blocking agents. Discharge Plan Departure Patient Disposition: [facility] Clinical Impression: Bradycardia Prescriptions: No Action ASPIRIN (Aspir-Low) 81 mg PO QDAY 30 Days Qty: 0 RF: 0 nitroglycerin [Nitrostat] 0.4 MG tablet, sublingual 0.4 mg Sublingual PRN PRNQty: 1 RF: 1 pantoprazole 40 MG tablet,delayed release (DR/EC) 40 mg PO QDAY Qty: 90 RF: 3 fluticasone-salmeterol [Advair Diskus] 250 MCG/50 MCG blister with device 1 puff INH BID Qty: 14 RF: 3 atorvastatin 40 MG tablet 40 mg PO QDAY Qty: 90 RF: 3 loratadine [Claritin] 10 MG tablet 10 mg PO QDAYP PRNQty: 0 RF: 0 ibuprofen [Advil] 200 MG tablet 200 mg PO Q4HP PRNQty: 0 RF: 0 albuterol sulfate [Proventil HFA] 90 MCG/PUFF HFA aerosol inhaler 2 puff INH QIDP Qty: 8.5 RF: 0 levothyroxine [Synthroid] 75 mcg tablet 75 mcg PO QAM Qty: 90 RF: 1 hydrocodone-acetaminophen [[place]] 5-325 mg tablet 2 tab PO Q4HP PRN (Reason: pain) Qty: 60 RF: 0 furosemide 20 mg tablet 20 mg PO DAILY RF: 0
[2018-02-22 14:26] LABS: Thyroid Stimulating Hormone 1.77 uIU/mL (0.47-4.68)
[2018-02-22] MEDS: HYDROCODONE/ACET 5/325 TABLET 1 TAB PO (15:47)
== END 2018-02-22 17:30 | disposition short-term general hospital (02) ==
PROVIDERS: Emergency Provider Emergency Medicine; PCP Internal Medicine
DX: R00.1 Bradycardia, unspecified (principal)
CPT/HCPCS: 36591; 71045; 80053; 82550; 82553; 83690; 83880; 84443; 84484; 85025; 85610; 85730; 93005; 93010; 99284; 99285

== ENCOUNTER → 2018-10-14 11:04 | Outpatient (CLI) | payer MEDICARE, OTHER, SELFPAY ==
[2018-10-14 12:46] LABS: Free T4, Direct Thyroxine 1.22 ng/dL (0.78-2.19)
[2018-10-14 13:00] LABS: Thyroid Stimulating Hormone 3.33 uIU/mL (0.47-4.68)
== END ==
PROVIDERS: PCP Internal Medicine; Visit Provider Nurse Practitioner
DX: E03.9 Hypothyroidism, unspecified (principal)
CPT/HCPCS: 36415; 84439; 84443

== ENCOUNTER → 2019-01-27 11:31 | Outpatient (CLI) | payer MEDICARE, OTHER, SELFPAY ==
--- NOTE | 2019-01-27 | DI.RAD.S_ITS ---
PROCEDURE: XR KUB INDICATIONS: KIDNEY STONES TECHNIQUE: One view of the abdomen acquired. COMPARISON: [facility], CR, XR KUB, 01/14/2018, 7:57. [facility], CR, KUB XRAY (1 VIEW ABDOMEN), 05/13/2017, 8:08. FINDINGS: Surgical changes and devices: None. Bowel: Bowel gas pattern is normal. Soft tissues: No new suspicious abdominal calcifications and a 6 mm peripherally calcified radiodensity in the right upper quadrant is again noted, with an appearance more likely representing gallstone than renal collecting system stone given its central lucency. Visualized solid organ contours appear normal in size. Bones: No suspicious bony lesions. IMPRESSION: A urinary tract stone is not found. What likely is a 6 mm faintly peripherally calcified gallstone is seen at the right upper quadrant. This was previously present. Dictated by: Florentino Coronado M.D. on 01/27/2019 at 12:57 Approved by: Florentino Coronado M.D. on 01/27/2019 at 12:59
[2019-01-27 12:55] LABS: Prostate Specific Antigen < 0.064 ng/mL (0.10-4.00)
== END ==
PROVIDERS: PCP Internal Medicine; Visit Provider Specialist
DX: N20.0 Calculus of kidney (principal); N40.1 Benign prostatic hyperplasia with lower urinary tract symptoms
CPT/HCPCS: 36415; 74018; 84153

== ENCOUNTER → 2019-02-20 10:08 | Outpatient (CLI) | payer MEDICARE, OTHER, SELFPAY ==
[2019-02-20 10:54] LABS: BUN Creatinine Ratio 26.7 (6-22); Blood Urea Nitrogen 24 mg/dL (9-20); Calcium 9.4 mg/dL (8.4-10.2); Carbon Dioxide 34 mmol/L (22-32); Chloride 98 mmol/L (98-107); Estimated Glomerular Filt Rate > 60.0 mL/min (>60); Glucose 100 mg/dL (80-110); HEMOLYSIS < 15 (0-50); Magnesium 2.3 mg/dL (1.6-2.3); Potassium 4.2 mmol/L (3.4-5.1); Sodium 141 mmol/L (137-145)
== END ==
PROVIDERS: PCP Internal Medicine; Visit Provider Internal Medicine
DX: I10 Essential (primary) hypertension (principal)
CPT/HCPCS: 36415; 80048; 83735

== ENCOUNTER → 2019-04-27 09:51 | Outpatient (CLI) | payer MEDICARE, OTHER, SELFPAY ==
[2019-04-27 10:55] LABS: BUN Creatinine Ratio 27.8 (6-22); Blood Urea Nitrogen 25 mg/dL (9-20); Calcium 9.1 mg/dL (8.4-10.2); Carbon Dioxide 33 mmol/L (22-32); Chloride 99 mmol/L (98-107); Estimated Glomerular Filt Rate > 60.0 mL/min (>60); Glucose 94 mg/dL (80-110); HEMOLYSIS < 15 (0-50); Potassium 4.2 mmol/L (3.4-5.1); Sodium 139 mmol/L (137-145)
== END ==
PROVIDERS: Family Provider Internal Medicine; PCP Internal Medicine; Visit Provider Hospitalist
DX: I50.32 Chronic diastolic (congestive) heart failure (principal)
CPT/HCPCS: 36415; 80048

== ENCOUNTER → 2019-07-15 12:01 | Outpatient (CLI) | payer MEDICARE, OTHER, SELFPAY ==
--- NOTE | 2019-07-15 | DI.MRI.S_ITS ---
PROCEDURE: MR SHOULDER LT WO CON INDICATIONS: Unspecified dislocation of left shoulder joint TECHNIQUE: Noncontrast oblique coronal T2 fast spin echo with fat saturation, oblique sagittal T1 spin echo and T2 fast spin echo with fat saturation, axial T1 spin echo and T2 fast spin echo with fat saturation through the shoulder. COMPARISON: [facility], CR, XR SHOULDER 2+ VIEWS LEFT, 07/08/2019, 8:13. FINDINGS: Image quality: Excellent. Rotator cuff: The supraspinatus, infraspinatus, and subscapularis tendons appear intact throughout but there is mild edema within the middle and lateral thirds of the supraspinatus tendon beneath the acromioclavicular joint and lateral aspect of the acromion. Chronic impingement is the likely cause of fat appearance.. Sagittal images demonstrate no muscle atrophy. Bones and bursae: No bone marrow contusions or fractures are seen along the humeral head, but there is marrow edema along the anterior glenoid from approximately the 6:00 osition cephalad through the 9:00 position with slight irregularity of the subchondral cortical margin of the inferior glenoid suspicious for representing an osteochondral slight impaction injury (series 6 image 15). There is mild acromioclavicular joint degeneration. The acromion demonstrates conventional anatomy, without an os acromiale. No pathologic subacromial-subdeltoid or subcoracoid bursal fluid is present. Capsule and soft tissues: In the absence of intra-articular contrast, the labrum and glenohumeral ligaments appear intact. The long head of the biceps tendon demonstrates normal location and morphology. The rotator interval appears normal, without fibrosis. The coracohumeral ligament is normal in thickness. IMPRESSION: Next 1. A rotator cuff tear is not found but there is chronic impingement by osseous and fibrous hypertrophy from the a.c. joint degeneration and also inferior tilt of the lateral acromion, causing edema within and immediately adjacent to the normal course of the supraspinatus tendon best seen below the lateral acromion border (series 8 image 10). No effusion or loose body is found. 2. There is focal edema within the anterior inferior glenoid marrow space, tracking cephalad through the 9:00 position, without definite cortical fracture. A small osteochondral impaction is suspected, seen on axial imaging series 6 image 15. A Hill-Sachs deformity is not associated. The appearance is most likely a manifestation of prior anterior subcoracoid dislocation. Dictated by: Florentino Coronado M.D. on 07/15/2019 at 15:54 Approved by: Florentino Coronado M.D. on 07/15/2019 at 16:02
== END ==
PROVIDERS: PCP Internal Medicine; Visit Provider Orthopaedic Surgery
DX: S43.005A Unspecified dislocation of left shoulder joint, initial encounter (principal); M75.42 Impingement syndrome of left shoulder; M19.012 Primary osteoarthritis, left shoulder
CPT/HCPCS: 73221

== ENCOUNTER → 2019-08-14 09:09 | Outpatient (CLI) | payer MEDICARE, OTHER, SELFPAY ==
--- NOTE | 2019-08-14 09:11 | DI.RAD.S_ITS ---
PROCEDURE: XR CHEST 2V INDICATIONS: cough, asthma exac, decreased lung sounds right LL TECHNIQUE: 2 views of the chest were acquired. COMPARISON: [facility], RA, XR CHEST 1V, 02/22/2018, 11:08. [facility], RA, CHEST 2 VIEW, 01/27/2016, 11:58. FINDINGS: Surgical changes and devices: None. Lungs and pleura: Lungs are clear considering chronic asymmetric elevation of the right hemidiaphragm. No pleural effusions or pneumothorax. Mediastinum: Mediastinal contours are normal. Heart size is normal. Bones and chest wall: No suspicious bony abnormalities. Soft tissues appear unremarkable. IMPRESSION: No pneumonia found, chronic elevation of the right hemidiaphragm. Dictated by: Florentino Coronado M.D. on 08/14/2019 at 10:19 Approved by: Florentino Coronado M.D. on 08/14/2019 at 10:20
== END ==
PROVIDERS: PCP Internal Medicine; Referring Provider Nurse Practitioner Family; Visit Provider Nurse Practitioner Family
DX: J45.901 Unspecified asthma with (acute) exacerbation (principal); R05 Cough; R09.89 Other specified symptoms and signs involving the circulatory and respiratory systems
CPT/HCPCS: 71046

== ENCOUNTER → 2020-01-27 10:06 | Outpatient (CLI) | payer MEDICARE, OTHER, SELFPAY ==
[2020-01-27 12:20] LABS: Alanine Aminotransferase 22 IU/L (<50); Albumin 4.1 g/dL (3.5-5.0); Albumin Globulin Ratio 1.6 (1.0-2.8); Alkaline Phosphatase 87 U/L (38-126); Aspartate Aminotransferase 25 IU/L (17-59); BUN Creatinine Ratio 21.4 (6-22); Bilirubin Total 0.8 mg/dL (0.2-1.3); Blood Urea Nitrogen 18 mg/dL (9-20); Calcium 9.1 mg/dL (8.4-10.2); Carbon Dioxide 29 mmol/L (22-32); Chloride 100 mmol/L (98-107); Cholesterol 127 mg/dL (140-199); Estimated Glomerular Filt Rate > 60.0 mL/min (>60); Globulin 2.5 g/dL (1.7-4.1); Glucose 77 mg/dL (80-110); HDL Cholesterol 62 mg/dL (40-60); HEMOLYSIS < 15 (0-50); LDL Cholesterol Calculated 42 mg/dL (<100); Magnesium 2.7 mg/dL (1.6-2.3); Potassium 4.1 mmol/L (3.4-5.1); Sodium 137 mmol/L (137-145); Total Protein 6.6 g/dL (6.3-8.2); Triglycerides 117 mg/dL (35-150)
[2020-01-27 12:37] LABS: Free T4, Direct Thyroxine 1.22 ng/dL (0.78-2.19)
[2020-01-27 12:51] LABS: Thyroid Stimulating Hormone 3.31 uIU/mL (0.47-4.68)
== END ==
PROVIDERS: PCP Internal Medicine; Referring Provider Hospitalist; Visit Provider Hospitalist
DX: I50.32 Chronic diastolic (congestive) heart failure (principal); E04.1 Nontoxic single thyroid nodule; E03.9 Hypothyroidism, unspecified; E78.2 Mixed hyperlipidemia; I10 Essential (primary) hypertension
CPT/HCPCS: 80053; 80061; 83735; 84439; 84443

== ENCOUNTER → 2020-03-08 09:24 | Outpatient (CLI) | payer MEDICARE, OTHER, SELFPAY ==
--- NOTE | 2020-03-08 09:29 | DI.RAD.S_ITS ---
PROCEDURE: XR KUB INDICATIONS: kidney stone TECHNIQUE: One view of the abdomen acquired. COMPARISON: [facility], CT, ABDOMEN/PELVIS WITH CONTRAST, 02/19/2017, 13:46. [facility], CR, XR KUB, 01/27/2019, 11:50. FINDINGS: Surgical changes and devices: Prostate brachytherapy seeds.. Bowel: Bowel gas pattern is normal. Unchanged appearance of a 6 mm faint calcification in the right upper quadrant is unchanged Bones: No suspicious bony lesions. Spondylosis and levocurvature IMPRESSION: Overall, grossly unchanged examination. No definite new or suspicious abdominal calcification. If clinically warranted, further evaluation with CT KUB could be performed. Dictated by: Geovanny Freeman M.D. on 03/08/2020 at 10:30 Approved by: Geovanny Freeman M.D. on 03/08/2020 at 10:37
== END ==
PROVIDERS: PCP Internal Medicine; Referring Provider Specialist; Visit Provider Specialist
DX: N20.0 Calculus of kidney (principal)
CPT/HCPCS: 36415; 74018; 84153

== ENCOUNTER → 2020-04-18 12:48 | Outpatient (CLI) | payer MEDICARE, OTHER, SELFPAY ==
[2020-04-18 13:36] LABS: Fractionated Inspired Oxygen 0.21; HCO3 ABG 30 mmol/L (22-26); Oxygen Saturation ABG 97 % (95-100); PCO2 ABG 48.4 mmHg (35-45); PO2 ABG 98 mmHg (80-100); TCO2 ABG 31 mmol/L (21-31); pH ABG 7.39 (7.35-7.45)
== END ==
PROVIDERS: PCP Internal Medicine; Referring Provider Internal Medicine; Visit Provider Internal Medicine
DX: J98.6 Disorders of diaphragm (principal); J98.4 Other disorders of lung; R06.02 Shortness of breath; J96.12 Chronic respiratory failure with hypercapnia
CPT/HCPCS: 36600; 82805

== ENCOUNTER → 2020-05-24 09:43 | Outpatient (CLI) | payer MEDICARE, OTHER, SELFPAY ==
[2020-05-24 11:12] LABS: BUN Creatinine Ratio 26.2 (6-22); Blood Urea Nitrogen 22 mg/dL (9-20); Calcium 9.2 mg/dL (8.4-10.2); Carbon Dioxide 33 mmol/L (22-32); Chloride 98 mmol/L (98-107); Estimated Glomerular Filt Rate > 60.0 mL/min (>60); Glucose 105 mg/dL (80-110); HEMOLYSIS < 15 (0-50); Magnesium 2.1 mg/dL (1.6-2.3); Sodium 134 mmol/L (137-145)
== END ==
PROVIDERS: PCP Internal Medicine; Referring Provider Nurse Practitioner; Visit Provider Nurse Practitioner
DX: I10 Essential (primary) hypertension (principal)
CPT/HCPCS: 36415; 80048; 83735

== ENCOUNTER → 2020-06-01 09:11 | Outpatient (CLI) | payer MEDICARE, OTHER, SELFPAY ==
[2020-06-01 10:15] LABS: COVID19 -Nasal RAPID Negative (Negative)
== END ==
PROVIDERS: PCP Internal Medicine; Visit Provider Physician Assistant
DX: Z11.59 Encounter for screening for other viral diseases (principal)
CPT/HCPCS: 87635

== ENCOUNTER → 2020-06-02 10:34 | Outpatient (CLI) | payer MEDICARE, OTHER, SELFPAY ==
--- NOTE | 2020-06-03 19:24 | DI.NM.S_ITS ---
DATE OF SERVICE: 06/02/2020 PROCEDURE: Pharmacological perfusion study. INDICATIONS: Frequent PVCs, history of coronary artery disease, PTCA of LAD, hypertension, hyperlipidemia. RADIOPHARMACEUTICAL: 25.2 millicurie technetium-99m Myoview IV was injected at stress and 26.7 millicurie technetium-99m Myoview IV was injected at rest. CARDIAC STRESS: The patient underwent IV Lexiscan perfusion study under the supervision of attending staff. He remained hemodynamically stable. No chest pain, but felt minimal dyspnea. Baseline EKG revealed sinus rhythm. During stress, there was artifact seen without any convincing ischemic changes or significant arrhythmias. No reversal agent needed. RAW DATA: There is increased subdiaphragmatic activity. The patient's weight is 218 pounds. GATED STUDY: Resting LV ejection fraction is 64 and stress LV ejection fraction is 72 percent without any obvious wall motion abnormalities. Resting end- diastolic volume 111 mL. TID ratio 0.84, which is within normal limits. Lung/heart ratio 0.33, which is within normal limits. MYOCARDIAL PERFUSION: Please note, this patient does not have any prone images. Stress supine and resting supine images were compared to each other. It appears that the patient has predominantly fixed, small size, severely decreased perfusion of distal inferolateral wall extending into the inferior apex, as well as a small perfusion defect of basal inferolateral wall with slight reversibility in the basal inferolateral segment. CONCLUSION: The patient does not have any prone images. On the stress supine and resting supine, there is a predominantly fixed distal inferolateral wall defect extending into the inferoapex, as well as mildly decreased perfusion of the basal inferolateral wall with slight reversibility in the basal inferolateral area. In absence of prone images, difficult to distinguish tissue attenuation artifact versus true myocardial infarction. However, on raw images, diaphragmatic shadow was seen. Patient's weight is 218 pounds. Inferior wall and inferolateral wall is moving well, which goes against the diagnosis of previous transmural myocardial infarction. There is a possibility of tissue attenuation artifact causing this perfusion defect. Overall ischemic burden is not significant. The patient also has distal left main about 50%, but in this study, there is no significant perfusion defect in other areas. No transient ischemic dilatation. Overall perfusion scan is low-risk perfusion scan. Esteban Good - ZANE/reji/lui doc#: [id number]/job#: [id number] dd: 06/03/2020 17:15:00 dt: 06/03/2020 18:40:00 DICTATING MD/COPIES TO: Monse Mendieta MD COPIES MNE: NOEMY;
== END ==
PROVIDERS: PCP Internal Medicine; Referring Provider Nurse Practitioner; Visit Provider Nurse Practitioner
DX: I25.10 Atherosclerotic heart disease of native coronary artery without angina pectoris (principal); I49.3 Ventricular premature depolarization; I10 Essential (primary) hypertension; E78.5 Hyperlipidemia, unspecified; Z95.5 Presence of coronary angioplasty implant and graft
CPT/HCPCS: 78452; 93017; A9502; J2785

== ENCOUNTER → 2020-07-25 11:12 | Outpatient (CLI) | payer MEDICARE, OTHER, SELFPAY ==
[2020-07-25 11:49] LABS: BUN Creatinine Ratio 20.5 (6-22); Blood Urea Nitrogen 18 mg/dL (9-20); Calcium 9.1 mg/dL (8.4-10.2); Carbon Dioxide 33 mmol/L (22-32); Chloride 96 mmol/L (98-107); Estimated Glomerular Filt Rate > 60.0 mL/min (>60); Glucose 99 mg/dL (80-110); HEMOLYSIS < 15 (0-50); Potassium 4.2 mmol/L (3.4-5.1); Sodium 134 mmol/L (137-145)
== END ==
PROVIDERS: PCP Internal Medicine; Referring Provider Internal Medicine Cardiovascular Disease; Visit Provider Internal Medicine Cardiovascular Disease
DX: I10 Essential (primary) hypertension (principal)
CPT/HCPCS: 36415; 80048

== ENCOUNTER → 2020-08-12 10:02 | Outpatient (CLI) | payer MEDICARE, OTHER, SELFPAY ==
[2020-08-12 12:21] LABS: BUN Creatinine Ratio 21.3 (6-22); Blood Urea Nitrogen 19 mg/dL (9-20); Calcium 8.9 mg/dL (8.4-10.2); Carbon Dioxide 35 mmol/L (22-32); Chloride 97 mmol/L (98-107); Estimated Glomerular Filt Rate > 60.0 mL/min (>60); Glucose 143 mg/dL (80-110); HEMOLYSIS 35 (0-50); Potassium 4.2 mmol/L (3.4-5.1); Sodium 133 mmol/L (137-145)
== END ==
PROVIDERS: PCP Internal Medicine; Referring Provider Internal Medicine Cardiovascular Disease; Visit Provider Internal Medicine Cardiovascular Disease
DX: I49.3 Ventricular premature depolarization (principal)
CPT/HCPCS: 36415; 80048; 83735

== ENCOUNTER → 2020-09-27 08:37 | Outpatient (CLI) | payer MEDICARE, OTHER, SELFPAY ==
[2020-09-27 09:44] LABS: BUN Creatinine Ratio 20.5 (6-22); Blood Urea Nitrogen 15 mg/dL (9-20); Calcium 9.3 mg/dL (8.4-10.2); Carbon Dioxide 32 mmol/L (22-32); Chloride 102 mmol/L (98-107); Estimated Glomerular Filt Rate > 60.0 mL/min (>60); Glucose 105 mg/dL (80-110); HEMOLYSIS < 15 (0-50); Potassium 4.6 mmol/L (3.4-5.1); Sodium 139 mmol/L (137-145)
== END ==
PROVIDERS: PCP Internal Medicine; Referring Provider Internal Medicine Cardiovascular Disease; Visit Provider Internal Medicine Cardiovascular Disease
DX: I10 Essential (primary) hypertension (principal)
CPT/HCPCS: 36415; 80048

== ENCOUNTER → 2020-11-17 11:10 | Outpatient (CLI) | payer MEDICARE, OTHER, SELFPAY ==
--- NOTE | 2020-11-17 11:36 | DI.US.S_ITS ---
PROCEDURE: US THYROID INDICATIONS: NODULE TECHNIQUE: Real-time scanning was performed of the thyroid gland, with image documentation. COMPARISON: [facility] Ultrasound, US, US THYROID, 10/22/2018, 9:58. [facility] Ultrasound, US, US THYROID, 04/21/2018, 8:25. FINDINGS: Right: Thyroid lobe measures 4.2 x 1.2 x 1.3 cm, and is homogeneous in echotexture. Left: Thyroid lobe measures 3.2 x 1.0 x 1.3 cm, and is homogenous in echotexture. Isthmus: 1.6 mm thick. Nodule number: 1 Location: Left mid Size: 1.0 x 0.6 x 0.6 cm. Composition: Solid Echogenicity: Hypoechoic Shape: wider than tall. Margins: Smooth Echogenic foci: None Total points: 4 ACR TI-RADS category: Moderately suspicious Nodule number: 2 Location: Left mid Size: 0.8 x 0.8 x 0.8 cm. Composition: Solid Echogenicity: Hypoechoic Shape: wider than tall. Margins: Smooth Echogenic foci: Macrocalcification Total points: 6 ACR TI-RADS category: Moderately suspicious IMPRESSION: Left thyroid nodules as above. Recommend continued followup ultrasound as detailed below. ACR TI-RADS definitions and recommendations: TI-RADS 1 (benign): 0 points. FNA not needed. TI-RADS 2 (not suspicious): 2 points. FNA not needed. TI-RADS 3 (mildly suspicious): 3 points. * FNA if 2.5 cm or larger, follow up if 1.5 cm or larger (at 1, 3, and 5 years). TI-RADS 4 (moderately suspicious): 4-6 points. * FNA if 1.5 cm or larger, follow up if 1 cm or larger (at 1, 2, 3, and 5 years). TI-RADS 5 (highly suspicious): 7 points or more. * FNA if 1 cm or larger, follow up if 0.5 cm or larger (every year for 5 years). Dictated by: Francis ESPINAL Interpreted: Florentino Coronado MD on 11/17/2020 at 13:13 Transcribed by: BRANDT on 11/17/2020 at 13:15 Approved by: Florentino Coronado M.D. on 11/17/2020 at 16:32
[2020-11-17 12:25] LABS: BUN Creatinine Ratio 28.9 (6-22); Blood Urea Nitrogen 22 mg/dL (9-20); Calcium 9.1 mg/dL (8.4-10.2); Carbon Dioxide 31 mmol/L (22-32); Chloride 99 mmol/L (98-107); Estimated Glomerular Filt Rate > 60.0 mL/min (>60); Glucose 123 mg/dL (80-110); HEMOLYSIS 41 (0-50); Potassium 4.3 mmol/L (3.4-5.1); Sodium 136 mmol/L (137-145)
[2020-11-17 13:14] LABS: Free T4, Direct Thyroxine 1.09 ng/dL (0.78-2.19)
[2020-11-17 13:28] LABS: Thyroid Stimulating Hormone 2.87 uIU/mL (0.47-4.68)
== END ==
PROVIDERS: PCP Internal Medicine; Referring Provider Internal Medicine; Visit Provider Internal Medicine
DX: I10 Essential (primary) hypertension (principal); E04.2 Nontoxic multinodular goiter; E03.9 Hypothyroidism, unspecified
CPT/HCPCS: 36415; 76536; 80048; 84439; 84443

== ENCOUNTER → 2021-01-30 10:57 | Outpatient (CLI) | payer MEDICARE, OTHER, SELFPAY ==
[2021-01-30 12:26] LABS: BUN Creatinine Ratio 24.7 (6-22); Blood Urea Nitrogen 22 mg/dL (9-20); Calcium 9.5 mg/dL (8.4-10.2); Carbon Dioxide 33 mmol/L (22-32); Chloride 102 mmol/L (98-107); Estimated Glomerular Filt Rate > 60.0 mL/min (>60); Glucose 94 mg/dL (80-110); HEMOLYSIS < 15 (0-50); Magnesium 2.2 mg/dL (1.6-2.3); Potassium 4.5 mmol/L (3.4-5.1); Sodium 139 mmol/L (137-145)
== END ==
PROVIDERS: PCP Internal Medicine; Referring Provider Internal Medicine Cardiovascular Disease; Visit Provider Internal Medicine Cardiovascular Disease
DX: I49.3 Ventricular premature depolarization (principal)
CPT/HCPCS: 36415; 80048; 83735

== ENCOUNTER → 2021-04-06 09:24 | Outpatient (CLI) | payer MEDICARE, OTHER, SELFPAY ==
[2021-04-06 11:15] LABS: Prostate Specific Antigen < 0.064 ng/mL (0.10-4.00)
== END ==
PROVIDERS: PCP Internal Medicine; Referring Provider Specialist; Visit Provider Specialist
DX: C61 Malignant neoplasm of prostate (principal)
CPT/HCPCS: 36415; 84153

== ENCOUNTER → 2022-01-08 06:58 | Outpatient (CLI) | payer MEDICARE, OTHER, SELFPAY ==
[2022-01-08 08:47] LABS: Alanine Aminotransferase 23 IU/L (<50); Albumin Globulin Ratio 1.5 (1.0-2.8); Alkaline Phosphatase 72 U/L (38-126); Aspartate Aminotransferase 28 IU/L (17-59); BUN Creatinine Ratio 26.7 (6-22); Bilirubin Total 0.7 mg/dL (0.2-1.3); Blood Urea Nitrogen 23 mg/dL (9-20); Carbon Dioxide 34 mmol/L (22-32); Chloride 99 mmol/L (98-107); Cholesterol 135 mg/dL (140-199); Estimated Glomerular Filt Rate > 60 mL/min (>60); Globulin 2.7 g/dL (1.7-4.1); Glucose 102 mg/dL (80-110); HDL Cholesterol 60 mg/dL (40-60); HEMOLYSIS < 15 (0-50); LDL Cholesterol Calculated 64 mg/dL (<100); Potassium 4.8 mmol/L (3.4-5.1); Sodium 137 mmol/L (137-145); Total Protein 6.7 g/dL (6.3-8.2); Triglycerides 56 mg/dL (35-150)
[2022-01-08 09:54] LABS: Free T4, Direct Thyroxine 1.11 ng/dL (0.78-2.19)
[2022-01-08 10:08] LABS: Thyroid Stimulating Hormone 2.86 uIU/mL (0.47-4.68)
== END ==
PROVIDERS: PCP Internal Medicine; Referring Provider Internal Medicine; Visit Provider Internal Medicine
DX: E03.9 Hypothyroidism, unspecified (principal); E04.1 Nontoxic single thyroid nodule; E78.2 Mixed hyperlipidemia; I10 Essential (primary) hypertension
CPT/HCPCS: 36415; 80053; 80061; 84439; 84443

== ENCOUNTER → 2022-03-06 13:05 | Outpatient (CLI) | payer MEDICARE, OTHER, SELFPAY ==
[2022-03-06 13:50] LABS: BUN Creatinine Ratio 26.1 (6-22); Blood Urea Nitrogen 23 mg/dL (9-20); Calcium 9.2 mg/dL (8.4-10.2); Carbon Dioxide 34 mmol/L (22-32); Chloride 99 mmol/L (98-107); Estimated Glomerular Filt Rate > 60 mL/min (>60); Glucose 112 mg/dL (80-110); HEMOLYSIS < 15 (0-50); Potassium 4.2 mmol/L (3.4-5.1); Sodium 140 mmol/L (137-145)
== END ==
PROVIDERS: PCP Internal Medicine; Referring Provider Internal Medicine Cardiovascular Disease; Visit Provider Internal Medicine Cardiovascular Disease
DX: I49.3 Ventricular premature depolarization (principal); I25.10 Atherosclerotic heart disease of native coronary artery without angina pectoris
CPT/HCPCS: 36415; 80048

== ENCOUNTER → 2022-03-08 13:34 | Outpatient (CLI) | payer MEDICARE, OTHER, SELFPAY ==
[2022-03-08 14:55] LABS: Free T4, Direct Thyroxine 1.18 ng/dL (0.78-2.19)
[2022-03-08 15:09] LABS: Thyroid Stimulating Hormone 2.63 uIU/mL (0.47-4.68)
== END ==
PROVIDERS: PCP Internal Medicine; Referring Provider Internal Medicine Cardiovascular Disease; Visit Provider Internal Medicine Cardiovascular Disease
DX: I49.3 Ventricular premature depolarization (principal); R06.02 Shortness of breath; I25.10 Atherosclerotic heart disease of native coronary artery without angina pectoris
CPT/HCPCS: 36415; 83735; 84439; 84443

== ENCOUNTER 2022-03-11 14:12 | Emergency (ER) | payer MEDICARE, OTHER, SELFPAY ==
[2022-03-11] VITALS (10 sets, daily range): BP systolic 174–233; BP diastolic 79–110; PULSE 57–81; RESP 12–20; TEMP 36.7; O2SAT 93–97; BMI 29.8
--- NOTE | 2022-03-11 14:18 | DI.RAD.S_ITS ---
PROCEDURE: XR CHEST 1V INDICATIONS: chest pain TECHNIQUE: One view of the chest was acquired. COMPARISON: [facility], CR, XR CHEST 2V, 08/14/2019, 9:12. FINDINGS: Surgical changes and devices: None. Lungs and pleura: Elevated right hemidiaphragm with basilar atelectasis present. Mediastinum: Mediastinal contours appear normal. Heart size is normal. Atherosclerotic vascular calcification noted in the aortic arch. Bones and chest wall: No suspicious bony lesions. Overlying soft tissues appear unremarkable. IMPRESSION: Right basilar atelectasis and or infiltrate associated with elevated right hemidiaphragm Approved by: Domo Pham M.D. on 03/11/2022 at 13:51
[2022-03-11 14:33] LABS: Add Manual Diff / Slide Review NO; Basophils Absolute Auto 0 /uL (0-100); Basophils Percent Auto 0.7 % (0-2); Eosinophils Absolute Auto 100 /uL (0-450); Eosinophils Percent Auto 1.3 % (2-4); Hematocrit 44.9 % (41-53); Hemoglobin 15.4 g/dL (13.5-17.5); Lymphocytes Absolute Auto 1600 /uL (1100-4500); Lymphocytes Percent Auto 30.1 % (25-40); Mean Corpuscular HGB Conc 34.2 % (30-36); Mean Corpuscular Volume 99.3 fL (80-100); Monocytes Absolute Auto 500 /uL (0-900); Monocytes Percent Auto 8.7 % (3-14); Neutrophils Absolute Auto 3100 /uL (1500-7000); Neutrophils Percent Auto 59.2 % (50-75); Platelet Count 163 X10^3/uL (150-400); Red Blood Cell Count 4.52 X10^6/uL (4.5-5.9); Red Cell Distribution Width 12.7 % (11.6-14.8); White Blood Cell Count 5.3 X10^3/uL (4.5-11.0)
[2022-03-11 14:46] LABS: Alanine Aminotransferase 19 IU/L (<50); Albumin 4.2 g/dL (3.5-5.0); Albumin Globulin Ratio 1.4 (1.0-2.8); Alkaline Phosphatase 73 U/L (38-126); Aspartate Aminotransferase 22 IU/L (17-59); BUN Creatinine Ratio 25.8 (6-22); Bilirubin Total 0.5 mg/dL (0.2-1.3); Blood Urea Nitrogen 23 mg/dL (9-20); Calcium 9.1 mg/dL (8.4-10.2); Carbon Dioxide 33 mmol/L (22-32); Chloride 98 mmol/L (98-107); Creatine Kinase 59 U/L (55-170); Estimated Glomerular Filt Rate > 60 mL/min (>60); Glucose 131 mg/dL (80-110); HEMOLYSIS < 15 (0-50); Lipase 40 U/L (23-300); Magnesium 2.3 mg/dL (1.6-2.3); Potassium 4.3 mmol/L (3.4-5.1); Sodium 136 mmol/L (137-145); Total Protein 7.2 g/dL (6.3-8.2)
[2022-03-11 14:56] LABS: COVID19 -Nasal RAPID Negative (Negative)
[2022-03-11 14:57] LABS: Troponin I < 0.012 ng/mL (0.01-0.034)
--- NOTE | 2022-03-11 14:59 | ED_ITS ---
HPI - Chest Pain General Chief Complaint: Chest Pain Stated Complaint: heart rhythm PVC + Time Seen by Provider: 03/11/22 14:35 Source: patient and family Mode of arrival: Ambulatory Limitations: no limitations Limitations: no limitations History of Present Illness HPI narrative: Patient is a 81-year-old male who is here for evaluation of an episode that occurred earlier today. He states that while he was standing outside he had a fairly sudden onset of what he felt like palpitations and lightheadedness and shortness of breath. He states he felt like he was going to pass out but did not. He currently has a ZIO patch in place for evaluation of symptoms like this that have occurred in the past. He states that he has had PVCs in the past. Also has a history of high blood pressure. Also has a history of coronary artery disease. At the time of the event he was somewhat short of breath. No chest pain but did have ?thumping? in his chest. The symptoms did resolve on their own. He is currently asymptomatic. Related Data Home Medications Medication Instructions Recorded Confirmed acetaminophen 500 mg tablet 1,000 mg PO BID 11/18/19 01/15/22 (Tylenol Extra Strength) cetirizine 10 mg tablet (Aller-Carmita) 5 mg PO DAILY PRN 03/23/20 01/15/22 atorvastatin 40 mg tablet 20 mg PO BID 11/15/20 01/15/22 Previous Rx's Medication Instructions Recorded ASPIRIN (Aspir-Low) 81 mg PO QDAY 30 days ##0 09/26/12 Disabled Parking Permit #1 ea 02/11/20 triamcinolone acetonide 0.1 % 1 applic topical TID #30 grams 12/05/20 topical cream nitroglycerin 0.4 mg sublingual 0.4 mg sublingual PRN PRN chest 03/01/21 tablet (Nitrostat) pain #15 tabs albuterol sulfate 90 mcg/actuation 2 puff inhalation QIDP ##8.5 05/24/21 aerosol inhaler (Proventil HFA) levothyroxine 75 mcg tablet 75 mcg PO QAM #90 tabs 06/29/21 (Synthroid) fluticasone 500 mcg-salmeterol 50 1 inh inhalation BID #180 ea 07/24/21 mcg/dose blistr powdr for inhalation hydrocodone 5 mg-acetaminophen 325 1 - 2 tab PO Q4H PRN pain #60 tabs 02/22/22 mg tablet Allergies Allergy/AdvReac Type Severity Reaction Status Date / Time diltiazem AdvReac Severe rash Verified 01/15/22 14:57 torsemide AdvReac Severe Edema. Verified 01/15/22 14:57 PCVs. N/V carvedilol [CARVEDILOL] AdvReac Intermediate fatigue Verified 01/15/22 14:57 chlorthalidone AdvReac Intermediate Cramping Verified 01/15/22 14:57 felodipine AdvReac Intermediate fatigue Verified 01/15/22 14:57 furosemide AdvReac Intermediate Makes him Verified 01/15/22 14:57 sick. hydrochlorothiazide AdvReac Intermediate PVCs Verified 01/15/22 14:57 losartan [LOSARTAN] AdvReac Intermediate fatigue Verified 01/15/22 14:57 metoprolol [METOPROLOL] AdvReac Intermediate fatigue Verified 01/15/22 14:57 simvastatin AdvReac Intermediate Cramping Verified 01/15/22 14:57 of the Muscles spironolactone AdvReac Intermediate PVCs Verified 01/15/22 14:57 valsartan [VALSARTAN] AdvReac Intermediate fatigue Verified 01/15/22 14:57 amlodipine [AMLODIPINE] AdvReac Mild EDEMA Verified 01/15/22 14:57 lisinopril [LISINOPRIL] AdvReac Mild HIVES/ Verified 01/15/22 14:57 ITCHING Review of Systems Cardiovascular Cardiovascular: Reports system reviewed and no additional complaints, except as documented Respiratory Respiratory: Reports system reviewed and no additional complaints, except as documented Gastrointestinal Gastrointestinal: Reports system reviewed and no additional complaints, except as documented Integumentary/Breasts Skin/Breast: Reports system reviewed and no additional complaints, except as documented Neurologic Neurologic: Reports system reviewed and no additional complaints, except as documented Hematologic/Lymphatic On Anticoagulants: No Patient History Medical History Acquired hypothyroidism (08/21/07) Anxiety (06/23/12) Arthritis Cataract Chicken pox Chronic back pain (1989) Colon polyps (2001) Coronary artery disease involving [place] coronary artery of [place] heart without angina pectoris (09/04/12) Degenerative lumbar disc (1964) Diastasis recti Erectile dysfunction (1997) Erectile dysfunction after prostate brachytherapy Essential hypertension (02/18/12) Frequent UTI Gastroesophageal reflux disease without esophagitis (1983) Hayfever (1967) Hearing loss History of brachytherapy (2006) History of nephrolithiasis History of renal calculi (06/23/12) Hx of brachytherapy Impotence (06/23/12) Malignant neoplasm of prostate (2005) Measles Mild intermittent asthma without complication (02/18/12) Mixed hyperlipidemia (02/18/12) Mumps Myocardial infarction (2012) Nephrolithiasis Normal cardiac stress test (2002) Osteoarthritis Panic attacks (1969) Plantar fasciitis Prostate cancer Thyroid disorder Thyroid nodule Surgical History H/O lithotripsy H/O prostate biopsy History of angioplasty (08/18/12) History of colonoscopy with polypectomy (2001) History of esophagogastroduodenoscopy (EGD) (1995) History of tonsillectomy (1944) History of vasectomy (1976) History of YAG laser capsulotomy of lens Normal colonoscopy (1984) Status post laser cataract surgery of both eyes (2005) Family History Father Heart disease Mother Heart disease Son Self-inflicted gunshot wound Son Bicycle rider struck in motor vehicle accident Social History Smoking Status: Never smoker Smoking Status: Never smoker alcohol intake frequency: 0-2 drinks per day Substance Use Type: does not use Exam Initial Vital Signs Initial Vital Signs: Vital Signs Pulse Rate 81 03/11/22 14:20 Respiratory Rate 15 03/11/22 14:20 Const General: cooperative and comfortable HENMT Head: normal to inspection and normocephalic Resp Effort & Inspection: normal respiratory effort Auscultation: clear to auscultation bilaterally Cardio Rate: regular rate Rhythm: regular rhythm GI Inspection: normal to inspection Skin General: no rashes or lesions noted Neuro General: patient alert, patient awake and moves all extremities Cognition: normal cognition Speech: speech normal Gait: normal gait Extrem General: normal to inspection and capillary refill normal Psych Appearance: grossly normal and well kempt Course Orders Ordered: ED Orders 03/11/22 14:18 XR chest 1V Stat 03/11/22 14:23 COVID19 -Nasal RAPID/Pre-Proc Stat Complete Blood Count AUTO DIFF Stat Comprehensive Metabolic Panel Stat Lipase Stat Magnesium Stat Troponin & CK Cardiac Panel Stat 03/11/22 14:26 EKG-12 Lead Stat Vital Signs Vital signs: Vital Signs - 8 hr 03/11/22 14:27 03/11/22 16:01 03/11/22 14:20 Temperature 98.1 F Pulse Rate 66 77 81 Respiratory Rate 20 17 15 Blood Pressure 233/110 H Pulse Oximetry 96 96 Oxygen Delivery Method Room Air 03/11/22 14:21 03/11/22 14:21 03/11/22 14:25 Temperature Pulse Rate 78 Respiratory Rate 12 Blood Pressure 233/101 H 188/89 H Pulse Oximetry 97 Oxygen Delivery Method 03/11/22 14:25 03/11/22 14:30 03/11/22 15:00 Temperature Pulse Rate 70 70 61 Respiratory Rate 16 14 Blood Pressure Pulse Oximetry 97 96 94 Oxygen Delivery Method 03/11/22 15:01 03/11/22 15:01 03/11/22 15:30 Temperature Pulse Rate 61 57 L Respiratory Rate 19 16 Blood Pressure 201/84 H Pulse Oximetry 96 93 Oxygen Delivery Method 03/11/22 15:31 03/11/22 15:31 Temperature Pulse Rate 59 L Respiratory Rate 18 Blood Pressure 174/79 H Pulse Oximetry 94 Oxygen Delivery Method MDM - Chest Pain Lab Data Attestation: I reviewed the patient's lab results. Result diagrams: 03/11/22 14:23 03/11/22 14:23 Labs: Lab Results 03/11/22 03/11/22 03/11/22 Range/Units 14:23 14:23 14:23 WBC 5.3 (4.5-11.0) X10^3/uL RBC 4.52 (4.5-5.9) X10^6/uL Hgb 15.4 (13.5-17.5) g/dL Hct 44.9 (41-53) % MCV 99.3 (80-100) fL MCH 34.0 (26-34) PG MCHC 34.2 (30-36) % RDW 12.7 (11.6-14.8) % Plt Count 163 (150-400) X10^3/uL Neut % (Auto) 59.2 (50-75) % Lymph % (Auto) 30.1 (25-40) % Nicol[place] % (Auto) 8.7 (3-14) % Eos % (Auto) 1.3 L (2-4) % Baso % (Auto) 0.7 (0-2) % Neut # (Auto) 3100 (2316-8251) /uL Lymph # (Auto) 1600 (2707-5131) /uL [place] # (Auto) 500 (0-900) /uL Eos # (Auto) 100 (0-450) /uL Baso # (Auto) 0 (0-100) /uL Sodium 136 L (137-145) mmol/L Potassium 4.3 (3.4-5.1) mmol/L Chloride 98 (98-107) mmol/L Carbon Dioxide 33 H (22-32) mmol/L BUN 23 H (9-20) mg/dL Creatinine 0.89 (0.66-1.25) mg/dL Estimated GFR > 60 (>60) mL/min BUN/Creatinine Ratio 25.8 H (6-22) Glucose 131 H (80-110) mg/dL Calcium 9.1 (8.4-10.2) mg/dL Magnesium 2.3 (1.6-2.3) mg/dL Total Bilirubin 0.5 (0.2-1.3) mg/dL AST 22 (17-59) IU/L ALT 19 (<50) IU/L Alkaline Phosphatase 73 (38-126) U/L Total Creatine Kinase 59 (55-170) U/L CK-MB (CK-2) TNP CK-MB (CK-2) Rel Index TNP Troponin I < 0.012 (0.01-0.034) ng/mL Total Protein 7.2 (6.3-8.2) g/dL Albumin 4.2 (3.5-5.0) g/dL Globulin 3.0 (1.7-4.1) g/dL Albumin/Globulin Ratio 1.4 (1.0-2.8) Lipase 40 (23-300) U/L SARS-CoV-2 (PCR) Negative (Negative) ECG Data Attestation: I personally reviewed and interpreted this ECG as follows: Interpretation: Sinus rhythm Ventricular rate is 70 Normal axis Normal QRS Normal QTC No ST T wave changes MDM Narrative Medical decision making narrative: Patient was asymptomatic here in the emergency department. He did have an occasional PAC and an occasional PVC while on the monitor. His EKG was unremarkable. Labs are unremarkable. Patient does have a ZIO patch on unfortunately we are unable to obtain the results of this today as he would have to send the device into the company to have it evaluated. Patient ambulated around the emergency department without difficulty. He states he feels back to normal. We did discuss the possibility of frequent PVCs, PACs or other arrhythmias such as atrial fibrillation. He is never had atrial fibrillation in the past. They also have low suspicion for CVA/TIA. Will discharge patient home and have him contact his service station manager for a follow-up. He was given return precautions. He expressed understanding and agreement. Discharge Plan Departure Patient Disposition: Home Clinical Impression: Palpitations Instructions: DI for Arrhythmias Activity Restrictions/Additional Instructions: I recommend that you continue to take all of your medications as directed and tomorrow contact your service station manager's office to discuss the events that happened today to see if you need to continue with the monitor patch. Return to the emergency department for any new or worsening symptoms. Prescriptions: No Action ASPIRIN (Aspir-Low) 81 mg PO QDAY 30 Days Qty: 0 0RF (DME) Disabled Parking Permit Qty: 1 0RF Rx Instructions: Patient qualifies for disabled parking as per the attached form. triamcinolone acetonide 0.1 % cream 1 applic TOP TID Qty: 30 0RF nitroglycerin [Nitrostat] 0.4 mg tablet, sublingual 0.4 mg Sublingual PRN PRN (Reason: chest pain) Qty: 15 1RF Rx Instructions: 1 tablet under tongue, repeat dose every 5 minutes as needed up to 3 doses in 15 minutes albuterol sulfate [Proventil HFA] 90 mcg/actuation HFA aerosol inhaler 2 puff inhalation QIDP Qty: 8.5 5RF levothyroxine [Synthroid] 75 mcg tablet 75 mcg PO QAM Qty: 90 1RF fluticasone propion-salmeterol 500-50 mcg/dose blister with device 1 inh inhalation BID Qty: 180 1RF hydrocodone-acetaminophen 5-325 mg tablet 1 - 2 tab PO Q4H PRN (Reason: pain) Qty: 60 0RF Rx Instructions: Exempt acetaminophen [Tylenol Extra Strength] 500 mg tablet 1,000 mg PO BID atorvastatin 40 mg tablet 20 mg PO BID cetirizine [Aller-Carmita] 10 mg tablet 5 mg PO DAILY PRN Referrals: Bakari Arrington MD [Primary Care Provider] - Visit Report Forms: Patient Portal/API
== END 2022-03-11 16:17 | disposition home or self-care (01) ==
PROVIDERS: Emergency Provider Emergency Medicine; PCP Internal Medicine
DX: R00.2 Palpitations (principal); Z20.822 Contact with and (suspected) exposure to COVID-19
CPT/HCPCS: 36415; 71045; 80053; 82550; 83690; 83735; 84484; 85025; 87635; 93005; 93010; 99283; 99284; C9803

== ENCOUNTER 2022-04-08 06:12 | Emergency (ER) | payer MEDICARE, OTHER, SELFPAY ==
[2022-04-08 06:10] VITALS: BP 204/91; PULSE 73; RESP 22; TEMP 35.8; O2SAT 94; BMI 30.2
--- NOTE | 2022-04-08 06:21 | DI.CT.S_ITS ---
PROCEDURE: CT CERVICAL SPINE WO CON INDICATIONS: severe and worsening neck pain TECHNIQUE: Noncontrast 3 mm thick sections acquired from the skull base to the T4 level. Sagittal and coronal reformats were then constructed. For radiation dose reduction, the following was used: automated exposure control, adjustment of mA and/or kV according to patient size. COMPARISON: None. FINDINGS: Image quality: This examination is somewhat limited by quantum mottle artifact. Bones: No fractures or dislocations. Visualized superior ribs are intact. Focal degenerative change is seen involving the C1-C2 interface anteriorly. There is moderate disc space narrowing seen at C5-C6 and moderate to severe disc space narrowing at C6-C7. Endplate irregularity and sclerosis are seen at C6-C7. Bridging anterior osteophytes are seen C5 through C7. [id number] fluid can be seen with left mastoid air cells. Soft tissues: Prevertebral soft tissues are normal in thickness. No paravertebral hematomas. No apical pneumothoraces. Calcified mediastinal lymph nodes are partially seen. Atherosclerotic calcification is noted. IMPRESSION: Negative for fracture. Cervical spine degenerative changes are seen, which are worst inferiorly. [id number] left mastoid air cell fluid can be seen. Please correlate with potential mastoiditis. Note: No significant discrepancy from the preliminary report. Dictated by: Jared Tee M.D. on 04/08/2022 at 6:55 Approved by: Jared Tee M.D. on 04/08/2022 at 7:00
--- NOTE | 2022-04-08 06:26 | ED.GENADULT ---
HPI - General Adult <Odalys Banks MD - Last Filed: 04/08/22 06:31> General Chief complaint: Neck Pain/Injury Stated complaint: Neck Pain Time Seen by Provider: 04/08/22 06:13 History of Present Illness HPI narrative: 81-year-old gentleman with a history of coronary artery disease hypertension, hyperlipidemia, asthma and right-sided diaphragm paralysis presents complaining of severe neck pain with torticollis. Describes an episode on the where he was stepping out of a golf cart and stood up and hit his head on the inner door rim of the golf cart causing a small abrasion to his head and jamming his neck. It was only minor early tender initially and he was able to continue the last 2 holes of his golf game that evening. Over the next couple of days it has increasingly worsened and but to the point that this morning even with Tylenol and hydrocodone was not able to turn his head past midline is most comfortable with his head slightly flexed and rotated to the right with pain radiating from the occiput all the way down his neck between his scapulas and out to his shoulder blade. Pain is reproducible with manipulation of his neck and palpation along the cervical paraspinous muscles and left trapezius muscle. He describes no fevers, cough, chest pain, palpitations, change to his dyspnea, no abdominal pain vomiting or diarrhea. Related Data Home Medications Medication Instructions Recorded Confirmed acetaminophen 500 mg tablet 1,000 mg PO BID 11/18/19 01/15/22 (Tylenol Extra Strength) cetirizine 10 mg tablet (Aller-Carmita) 5 mg PO DAILY PRN 03/23/20 01/15/22 atorvastatin 40 mg tablet 20 mg PO BID 11/15/20 01/15/22 Previous Rx's Medication Instructions Recorded ASPIRIN (Aspir-Low) 81 mg PO QDAY 30 days ##0 09/26/12 Disabled Parking Permit #1 ea 02/11/20 triamcinolone acetonide 0.1 % 1 applic topical TID #30 grams 12/05/20 topical cream nitroglycerin 0.4 mg sublingual 0.4 mg sublingual PRN PRN chest 03/01/21 tablet (Nitrostat) pain #15 tabs albuterol sulfate 90 mcg/actuation 2 puff inhalation QIDP ##8.5 12/01/21 aerosol inhaler (Proventil HFA) levothyroxine 75 mcg tablet 75 mcg PO QAM #90 tabs 06/29/21 (Synthroid) fluticasone 500 mcg-salmeterol 50 1 inh inhalation BID #180 ea 07/24/21 mcg/dose blistr powdr for inhalation hydrocodone 5 mg-acetaminophen 325 1 - 2 tab PO Q4H PRN pain #60 tabs 02/22/22 mg tablet lidocaine 5 % topical patch 1 patch topical Q24H PRN pain #30 04/08/22 ea prednisone 20 mg tablet 40 mg PO DAILY #10 tabs 04/08/22 Allergies Allergy/AdvReac Type Severity Reaction Status Date / Time diltiazem AdvReac Severe rash Verified 01/15/22 14:57 torsemide AdvReac Severe Edema. Verified 01/15/22 14:57 PCVs. N/V carvedilol [CARVEDILOL] AdvReac Intermediate fatigue Verified 01/15/22 14:57 chlorthalidone AdvReac Intermediate Cramping Verified 01/15/22 14:57 felodipine AdvReac Intermediate fatigue Verified 01/15/22 14:57 furosemide AdvReac Intermediate Makes him Verified 01/15/22 14:57 sick. hydrochlorothiazide AdvReac Intermediate PVCs Verified 01/15/22 14:57 losartan [LOSARTAN] AdvReac Intermediate fatigue Verified 01/15/22 14:57 metoprolol [METOPROLOL] AdvReac Intermediate fatigue Verified 01/15/22 14:57 simvastatin AdvReac Intermediate Cramping Verified 01/15/22 14:57 of the Muscles spironolactone AdvReac Intermediate PVCs Verified 01/15/22 14:57 valsartan [VALSARTAN] AdvReac Intermediate fatigue Verified 01/15/22 14:57 amlodipine [AMLODIPINE] AdvReac Mild EDEMA Verified 01/15/22 14:57 lisinopril [LISINOPRIL] AdvReac Mild HIVES/ Verified 01/15/22 14:57 ITCHING Review of Systems <Odalys Banks MD - Last Filed: 04/08/22 06:31> Review of Systems Narrative: Remainder of complete review of systems is otherwise unremarkable except for that included in the HPI. Patient History <Odalys Banks MD - Last Filed: 04/08/22 06:31> Medical History Acquired hypothyroidism (08/21/07) Anxiety (06/23/12) Arthritis Cataract Chicken pox Chronic back pain (1989) Colon polyps (2001) Coronary artery disease involving ho-chunk coronary artery of ho-chunk heart without angina pectoris (09/04/12) Degenerative lumbar disc (1964) Diastasis recti Erectile dysfunction (1997) Erectile dysfunction after prostate brachytherapy Essential hypertension (02/18/12) Frequent UTI Gastroesophageal reflux disease without esophagitis (1983) Hayfever (1967) Hearing loss History of brachytherapy (2006) History of nephrolithiasis History of renal calculi (06/23/12) Hx of brachytherapy Impotence (06/23/12) Malignant neoplasm of prostate (2005) Measles Mild intermittent asthma without complication (02/18/12) Mixed hyperlipidemia (02/18/12) Mumps Myocardial infarction (2012) Nephrolithiasis Normal cardiac stress test (2002) Osteoarthritis Panic attacks (1969) Plantar fasciitis Prostate cancer Thyroid disorder Thyroid nodule Surgical History H/O lithotripsy H/O prostate biopsy History of angioplasty (08/18/12) History of colonoscopy with polypectomy (2001) History of esophagogastroduodenoscopy (EGD) (1995) History of tonsillectomy (1944) History of vasectomy (1976) History of YAG laser capsulotomy of lens Normal colonoscopy (1984) Status post laser cataract surgery of both eyes (2005) Family History Father Heart disease Mother Heart disease Son Self-inflicted gunshot wound Son Bicycle rider struck in motor vehicle accident Social History Smoking Status: Never smoker Smoking Status: Never smoker alcohol intake frequency: 0-2 drinks per day Substance Use Type: does not use Exam <Odalys Banks MD - Last Filed: 04/08/22 06:31> Initial Vital Signs Initial Vital Signs: Vital Signs Temperature 96.5 F L 04/08/22 06:10 Pulse Rate 73 04/08/22 06:10 Respiratory Rate 22 04/08/22 06:10 Blood Pressure 204/91 H 04/08/22 06:10 Pulse Oximetry 94 04/08/22 06:10 Oxygen Delivery Method 04/08/22 06:10 General: Healthy appearing, in severe pain, unable to move his neck and head past midline. Able to give a complete and coherent history. Well-nourished well-developed HEENT: Moist mucous membranes, normal sclera with reactive pupils, is a minor abrasion that is healing nicely over the top of his head Neck: Tenderness along the left cervical spine border extending into the occipital insertion and down into the trapezius muscle. Reproducible with palpation with no evidence of erythema, fluctuance. He does not specifically have midline cervical spine tenderness. There is no subcutaneous air or rashes to the area. Respiratory: Lungs with minor scattered wheezes in upper lung wilson, no rhonchi. Full and symmetrical air movement Cardiac: Regular rate and rhythm no murmurs no bruits Abdomen: Obese, Soft, nontender, good bowel tones, no flank pain Skin: Warm and dry, no rashes Neurologic: Grossly neurologically intact with no obvious asymmetries or abnormalities Extremities: No trauma, well perfused Psych: Cooperative, appropriate insight and affect <Fatmata Arciniega DO - Last Filed: 04/08/22 11:14> Initial Vital Signs Initial Vital Signs: Vital Signs Temperature 96.5 F L 04/08/22 06:10 Pulse Rate 73 04/08/22 06:10 Respiratory Rate 22 04/08/22 06:10 Blood Pressure 204/91 H 04/08/22 06:10 Pulse Oximetry 94 04/08/22 06:10 Oxygen Delivery Method 04/08/22 06:10 Course <Odalys Banks MD - Last Filed: 04/08/22 06:31> Orders Ordered: ED Orders 04/08/22 06:21 CT cervical spine wo con Stat Discontinued Medications Al Hydrox/Mg Hydrox/Simethicone (Mag Hydrox/Alum/Simeth 30 Ml Udc) 30 ml PO NOW ONE Stop: 04/08/22 08:27 Last Admin: 04/08/22 09:27 Dose: 30 ml Documented By: WALTER Dexamethasone (Dexamethasone 10 Mg/Ml Vial) 10 mg IV NOW ONE Stop: 04/08/22 06:20 Last Admin: 04/08/22 06:28 Dose: 10 mg Documented By: DELFINA Hydromorphone HCl (Hydromorphone 0.5 Mg Inj) 0.5 mg IV Q15MIN PRN PRN Reason: Pain, Last Admin: 04/08/22 09:26 Dose: 0.5 mg Documented By: Admin: 04/08/22 07:22 Dose: 0.5 mg Documented By: Admin: 04/08/22 06:28 Dose: 0.5 mg Documented By: DELFINA Lidocaine (Lidocaine Patch 1 Each Adh..Patch) 1 each TOP NOW ONE Stop: 04/08/22 08:27 Last Admin: 04/08/22 09:27 Dose: 1 each Documented By: WALTER Ondansetron HCl (Ondansetron 4 Mg/2 Ml Inj) 4 mg IV NOW ONE Stop: 04/08/22 09:51 Last Admin: 04/08/22 09:53 Dose: 4 mg Documented By: WALTER Vital Signs Vital signs: Vital Signs - 8 hr 04/08/22 06:10 04/08/22 09:28 Temperature 96.5 F L Pulse Rate 73 68 Respiratory Rate 22 20 Blood Pressure 204/91 H 206/95 H Pulse Oximetry 94 98 Oxygen Delivery Method Room Air Room Air <Fatmata Arciniega, - Last Filed: 04/08/22 11:14> Orders Ordered: ED Orders 04/08/22 06:21 CT cervical spine wo con Stat Discontinued Medications Al Hydrox/Mg Hydrox/Simethicone (Mag Hydrox/Alum/Simeth 30 Ml Udc) 30 ml PO NOW ONE Stop: 04/08/22 08:27 Last Admin: 04/08/22 09:27 Dose: 30 ml Documented By: WALTER Dexamethasone (Dexamethasone 10 Mg/Ml Vial) 10 mg IV NOW ONE Stop: 04/08/22 06:20 Last Admin: 04/08/22 06:28 Dose: 10 mg Documented By: DELFINA Hydromorphone HCl (Hydromorphone 0.5 Mg Inj) 0.5 mg IV Q15MIN PRN PRN Reason: Pain, Last Admin: 04/08/22 09:26 Dose: 0.5 mg Documented By: Admin: 04/08/22 07:22 Dose: 0.5 mg Documented By: Admin: 04/08/22 06:28 Dose: 0.5 mg Documented By: DELFINA Lidocaine (Lidocaine Patch 1 Each Adh..Patch) 1 each TOP NOW ONE Stop: 04/08/22 08:27 Last Admin: 04/08/22 09:27 Dose: 1 each Documented By: WALTER Ondansetron HCl (Ondansetron 4 Mg/2 Ml Inj) 4 mg IV NOW ONE Stop: 04/08/22 09:51 Last Admin: 04/08/22 09:53 Dose: 4 mg Documented By: WALTER Vital Signs Vital signs: Vital Signs - 8 hr 04/08/22 06:10 04/08/22 09:28 Temperature 96.5 F L Pulse Rate 73 68 Respiratory Rate 22 20 Blood Pressure 204/91 H 206/95 H Pulse Oximetry 94 98 Oxygen Delivery Method Room Air Room Air <Fatmata Arciniega DO - Last Filed: 04/08/22 11:14> Imaging Data CT - cervical spine: Radiologist's Impression: [place] [address] CT Scan Report Signed Patient: Esteban Good MR#: [id number] : 1940 Acct:[id number] Age/Sex: 81 / M Date of Service: 04/08/22 Loc: ED Accession Number: [id number] ?? Procedure: CT cervical spine wo con Ordering Provider: Odalys Banks MD PROCEDURE:? CT CERVICAL SPINE WO CON ? INDICATIONS:? severe and worsening neck pain ? TECHNIQUE:? Noncontrast 3 mm thick sections acquired from the skull base to the T4 level.? Sagittal and coronal reformats were then constructed.? For radiation dose reduction, the following was used:? automated exposure control, adjustment of mA and/or kV according to patient size.? ? COMPARISON:? None. ? FINDINGS:? Image quality:? This examination is somewhat limited by quantum mottle artifact.? ? Bones:? No fractures or dislocations.? Visualized superior ribs are intact.? ? Focal degenerative change is seen involving the C1-C2 interface anteriorly.? There is moderate disc space narrowing seen at C5-C6 and moderate to severe disc space narrowing at C6-C7.? Endplate irregularity and sclerosis are seen at C6-C7.? Bridging anterior osteophytes are seen C5 through C7. ? Cewj-ky-bycrduey fluid can be seen with left mastoid air cells. ? Soft tissues:? Prevertebral soft tissues are normal in thickness.? No paravertebral hematomas.? No apical pneumothoraces.? ? Calcified mediastinal lymph nodes are partially seen. Atherosclerotic calcification is noted.? ? ? IMPRESSION:? Negative for fracture. ? Cervical spine degenerative changes are seen, which are worst inferiorly. ? Iwgt-[id number] left mastoid air cell fluid can be seen.? Please correlate with potential mastoiditis. ? ? Note: No significant discrepancy from the preliminary report. ? Dictated by: Jared Tee M.D. on 04/08/2022 at 6:55 ? ? Approved by: Jared Tee M.D. on 04/08/2022 at 7:00?? MDM Narrative Medical decision making narrative: Suze 04/08/22 0807: 81-year-old male with known coronary artery disease who presents with neck pain after hitting head on the inner door room of a golf cart causing an abrasion and jamming his neck and has had persistent pain. CT of the cervical spine is negative. Patient was signed out to myself by Dr. Banks while awaiting his imaging. Patient seen independently evaluated by myself he is uncomfortable he prefers to hold his neck rotated the right but he can take through range of motion. He is actually able to get up off the bed stand and urinate on his own with a urinal at bedside. Neurovascularly intact reviewed his findings today he has some difficulty with pain medications he does have about 60 tablets of Percy or hydrocodone at home he prefers not to take it we discussed alternative options such as Tylenol which he states has not been quite as helpful this time, lidocaine patch which may be helpful for more localized pain although he notes he had a testosterone patch remotely and had some issues with the adhesive. We discussed to stop the lidocaine patch if any issues and can also try a small amount of prednisone to see if this is helpful he is tolerated this well in the past for his lungs as there may be a component of nerve impingement. We reviewed his CT findings today and need for follow-up and return precautions and red flag symptoms. Discharge Plan Departure Patient Disposition: Home Clinical Impression: Degenerative disc disease, cervical, Cervical pain Instructions: DI for Neck Pain Activity Restrictions/Additional Instructions: Your imaging today shows significant degenerative changes but no fracture or breaks. If your symptoms are continuing to persist please follow-up with her primary care and/or orthopedic surgery. You may continue your home hydrocodone you can take 1-2 tablets every 6 hours if needed for pain. You can take Tylenol instead up to a 1000 mg every 6 hours. You may also use lidocaine patch to the affected area daily. There is also a prescription for prednisone which can help with inflammation or irritation of the nerves if they are impinged or squeezed. Take this until completely gone. 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 Prescriptions: New lidocaine 5 % adhesive patch,medicated 1 patch topical Q24H PRN (Reason: pain) Qty: 30 0RF Rx Instructions: leave on most painful area for up to 12 hrs prednisone 20 mg tablet 40 mg PO DAILY Qty: 10 0RF No Action ASPIRIN (Aspir-Low) 81 mg PO QDAY 30 Days Qty: 0 0RF (DME) Disabled Parking Permit Qty: 1 0RF Rx Instructions: Patient qualifies for disabled parking as per the attached form. triamcinolone acetonide 0.1 % cream 1 applic TOP TID Qty: 30 0RF nitroglycerin [Nitrostat] 0.4 mg tablet, sublingual 0.4 mg Sublingual PRN PRN (Reason: chest pain) Qty: 15 1RF Rx Instructions: 1 tablet under tongue, repeat dose every 5 minutes as needed up to 3 doses in 15 minutes albuterol sulfate [Proventil HFA] 90 mcg/actuation HFA aerosol inhaler 2 puff inhalation QIDP Qty: 8.5 5RF levothyroxine [Synthroid] 75 mcg tablet 75 mcg PO QAM Qty: 90 1RF fluticasone propion-salmeterol 500-50 mcg/dose blister with device 1 inh inhalation BID Qty: 180 1RF hydrocodone-acetaminophen 5-325 mg tablet 1 - 2 tab PO Q4H PRN (Reason: pain) Qty: 60 0RF Rx Instructions: Exempt acetaminophen [Tylenol Extra Strength] 500 mg tablet 1,000 mg PO BID atorvastatin 40 mg tablet 20 mg PO BID cetirizine [Aller-Carmita] 10 mg tablet 5 mg PO DAILY PRN Referrals: Mariela Zarate MD [Physician] - Bakari Arrington MD [Primary Care Provider] - Visit Report Forms: Patient Portal/API
[2022-04-08] MEDS: DEXAMETHASONE 10 MG/ML VIAL IV (06:28)
[2022-04-08] MEDS: HYDROMORPHONE 0.5 MG INJ IV ×3 (06:28→09:26)
[2022-04-08] MEDS: LIDOCAINE PATCH 1 EACH ADH..PATCH TOP (09:27)
[2022-04-08] MEDS: MAG HYDROX/ALUM/SIMETH 30 ML UDC PO (09:27)
[2022-04-08 09:28] VITALS: BP 206/95; PULSE 68; RESP 20; O2SAT 98
[2022-04-08] MEDS: ONDANSETRON 4 MG/2 ML INJ IV (09:53)
== END 2022-04-08 10:15 | disposition home or self-care (01) ==
PROVIDERS: Emergency Provider Emergency Medicine; PCP Internal Medicine
DX: M50.322 Other cervical disc degeneration at C5-C6 level (principal); W22.8XXA Striking against or struck by other objects, initial encounter
CPT/HCPCS: 72125; 96374; 96375; 96376; 99284; J1100; J1170; J2405

== ENCOUNTER → 2022-04-16 13:40 | Outpatient (CLI) | payer MEDICARE, OTHER, SELFPAY ==
--- NOTE | 2022-04-16 | DI.ECHO.S_ITS ---
[facility] +---------+ [facility] +---------+ : : [address] : : : : [id number] : : : : Phone: [phone]+ Echocardiogram Report + + :Name: FLORENTINO QUEVEDO Study Date: 04/16/2022 Height: 66.5 in: [facility] ReadingLocation: Weight: 184 lb : : Gender: Male BSA: 1.9 m2 : :: 1940 Age: 81 yrs BP: 166/97 mmHg: :Reason For Study: DIASTOLIC HEART FAILURE : :Ordering Physician: SLAVA, : :CAMPBELL BE Performed By: Romina Tao : :Referring: CAMPBELL PEDERSEN : + + Interpretation Summary The left ventricle is normal in size. The ejection fraction is estimated to be 55-60%. Diastolic parameters suggest a relaxation abnormality of the left ventricle, consistent with probable normal filling pressures. Previous LV ejection fraction 60 to 65%. The right ventricle is at the upper limits of normal in size. The right ventricular systolic function is normal. No significant valvular pathology seen. The IVC is of normal diameter and collapses greater than 50% with a sniff. This suggests a low right atrial pressure of 3 mm Hg. Mild atherosclerotic plaque(s) in the aortic arch. Procedure: A two-dimensional transthoracic echocardiogram with color flow and Doppler was performed. The study quality was technically adequate. Comparison is made with the echocardiogram of 11/29/2020. The patient was in sinus rhythm with heart rates between 63-81 bpm during the exam. Left Ventricle: The left ventricle is normal in size. Proximal septal thickening is noted. There is no echo evidence for significant left ventricular outflow tract obstruction. There is no thrombus. The ejection fraction is estimated to be 55-60%. There are no focal wall motion abnormalities. Diastolic parameters suggest a relaxation abnormality of the left ventricle, consistent with probable normal filling pressures. Right Ventricle: The right ventricle is at the upper limits of normal in size. The right ventricular systolic function is normal. Atria: The left atrial size is normal. Both atria have remained unchanged in size since the prior echo exam. Right atrial size is normal. There is no Doppler evidence for an interatrial shunt. Mitral Valve: The mitral valve leaflets appear mildly thickened, but open well. There is mild mitral annular calcification. There is trace mitral regurgitation. Aortic Valve: The aortic valve is trileaflet. The aortic valve is slightly calcified. There is no aortic valve stenosis. There is trace aortic regurgitation. Compared to the prior echo study, there has been no change in the severity of aortic regurgitation. Tricuspid Valve: The tricuspid valve is normal in structure and function. There is trace tricuspid regurgitation. Pulmonary artery pressures cannot be estimated because of the lack of a measurable TR jet velocity. Pulmonic Valve: The pulmonic valve leaflets are thin and pliable; valve motion is normal. There is trace pulmonic regurgitation. Great Vessels: The aortic root is normal size. The dimensions of the ascending aorta are normal. Mild atherosclerotic plaque(s) in the aortic arch. The IVC is of normal diameter and collapses greater than 50% with a sniff. This suggests a low right atrial pressure of 3 mm Hg. Pericardium/ Pleura There is no pericardial effusion. There is an anterior echo-free space consistent with a fat pad. There is no pleural effusion. MMode/2D Measurements & Calculations LVIDd: 5.2 cm LVOT diam: 2.1 cm LVIDs: 3.5 cm Ao root diam: 3.3 cm FS: 33.5 % asc Aorta Diam: 3.4 cm EPSS: 1.2 cm Ao Arch Diam (Prox Trans): 2.9 cm IVSd: 0.79 cm LVPWd: 0.84 cm LV chester. diameter/BSA (cm/m^2): 2.7 LV sys. diameter/BSA (cm/m^2): 1.8 LA A2 area: 17.3 cm2 RA long axis: 4.4 cm LA A4 area: 13.9 cm2 RA area: 11.1 cm2 LA length (vol): 5.0 cm RA vol: 24.2 ml LA vol: 41.2 ml RA : 12.4 ml/m2 LA vol index: 21.2 ml/m2 IVC diam: 1.1 cm RVD1 (basal): 4.1 cm RVD2 (mid): 3.8 cm TAPSE: 2.0 cm Doppler Measurements & Calculations Ao V2 max: 157.4 cm/sec LVOT Max Clifford: 89.8 cm/sec Ao V2 mean: 106.4 cm/sec LV V1 max P.2 mmHg Ao max P.9 mmHg LV V1 VTI: 19.7 cm Ao mean P.1 mmHg MAE(I,D): 2.1 cm2 Ao V2 VTI: 31.2 cm MAE(V,D): 1.9 cm2 sev ratio: 0.63 MAE indexed to BSA (cm^2/m^2): 1.1 MV E max clifford: 46.8 cm/sec PA V2 max: 111.2 cm/sec MV A max clifford: 120.2 cm/sec PA V2 mean: 77.9 cm/sec MV E/A: 0.39 PA mean P.7 mmHg Med Peak E' Clifford: 3.9 cm/sec PA pr(Accel): 51.6 mmHg E/E' med: 11.9 Lat Peak E' Clifford: 5.1 cm/sec E/E' lat: 9.3 E/e' average: 10.6 MV dec time: 0.30 sec SV(LVOT): 66.9 ml Reading Physician:12:42 PM
== END ==
PROVIDERS: PCP Internal Medicine; Referring Provider Nurse Practitioner Family; Visit Provider Nurse Practitioner Family
DX: I70.0 Atherosclerosis of aorta (principal); I50.32 Chronic diastolic (congestive) heart failure; I34.81 Nonrheumatic mitral (valve) annulus calcification; R06.02 Shortness of breath
CPT/HCPCS: 93306

== ENCOUNTER → 2022-06-29 07:07 | Outpatient (CLI) | payer MEDICARE, OTHER, SELFPAY ==
[2022-06-29 08:50] LABS: Alanine Aminotransferase 26 IU/L (<50); Albumin 4.2 g/dL (3.5-5.0); Albumin Globulin Ratio 1.7 (1.0-2.8); Alkaline Phosphatase 75 U/L (38-126); Aspartate Aminotransferase 26 IU/L (17-59); BUN Creatinine Ratio 28.1 (6-22); Bilirubin Total 0.9 mg/dL (0.2-1.3); Blood Urea Nitrogen 25 mg/dL (9-20); Carbon Dioxide 34 mmol/L (22-32); Chloride 98 mmol/L (98-107); Cholesterol 156 mg/dL (140-199); Estimated Glomerular Filt Rate > 60 mL/min (>60); Globulin 2.5 g/dL (1.7-4.1); Glucose 108 mg/dL (80-110); HDL Cholesterol 86 mg/dL (40-60); HEMOLYSIS < 15 (0-50); LDL Cholesterol Calculated 60 mg/dL (<100); Potassium 4.1 mmol/L (3.4-5.1); Sodium 136 mmol/L (137-145); Total Protein 6.7 g/dL (6.3-8.2); Triglycerides 51 mg/dL (35-150)
== END ==
PROVIDERS: PCP Internal Medicine; Referring Provider Internal Medicine; Visit Provider Internal Medicine
DX: E78.2 Mixed hyperlipidemia (principal); I10 Essential (primary) hypertension
CPT/HCPCS: 36415; 80053; 80061

== ENCOUNTER 2022-12-26 19:47 | Emergency (ER) | payer MEDICARE, OTHER, SELFPAY ==
[2022-12-26] VITALS (7 sets, daily range): BP systolic 179–221; BP diastolic 81–101; PULSE 62–75; RESP 16; TEMP 36.7; O2SAT 94–96; BMI 28.7
--- NOTE | 2022-12-26 22:56 | ED_ITS ---
HPI - Skin/Abscess/Foreign Bdy General Chief complaint: Skin/Abscess/Foreign Body Stated complaint: quickly spreading red rash Time Seen by Provider: 12/26/22 22:49 Source: patient Mode of arrival: Ambulatory History of Present Illness HPI narrative: Patient is a 82-year-old male history of hypertension presenting today with 3 days of right arm redness with a skin tear. The redness has spread. He denies any fever body aches or chills. 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 Related Data Home Medications Medication Instructions Recorded Confirmed acetaminophen 500 mg tablet 1,000 mg PO BID 11/18/19 07/05/22 (Tylenol Extra Strength) cetirizine 10 mg tablet (Aller-Carmita) 5 mg PO DAILY PRN 03/23/20 07/05/22 atorvastatin 40 mg tablet 20 mg PO BID 11/15/20 07/05/22 Previous Rx's Medication Instructions Recorded ASPIRIN (Aspir-Low) 81 mg PO QDAY 30 days ##0 09/26/12 Disabled Parking Permit #1 ea 02/11/20 triamcinolone acetonide 0.1 % 1 applic topical TID #30 grams 12/05/20 topical cream nitroglycerin 0.4 mg sublingual 0.4 mg sublingual PRN PRN chest 03/01/21 tablet (Nitrostat) pain #15 tabs lidocaine 5 % topical patch 1 patch topical Q24H PRN pain #30 04/08/22 ea levothyroxine 75 mcg tablet 75 mcg PO QAM #90 tabs 06/27/22 (Synthroid) fluticasone 500 mcg-salmeterol 50 1 inh inhalation BID #180 ea 08/27/22 mcg/dose blistr powdr for inhalation hydrocodone 5 mg-acetaminophen 325 1 - 2 tab PO Q4H PRN pain #60 tabs 11/22/22 mg tablet albuterol sulfate 90 mcg/actuation 2 puff inhalation QIDP ##8.5 11/30/22 aerosol inhaler (Proventil HFA) cephalexin 500 mg capsule 500 mg PO TID #21 caps 12/26/22 Allergies Allergy/AdvReac Type Severity Reaction Status Date / Time diltiazem AdvReac Severe rash Verified 01/15/22 14:57 torsemide AdvReac Severe Edema. Verified 01/15/22 14:57 PCVs. N/V carvedilol [CARVEDILOL] AdvReac Intermediate fatigue Verified 01/15/22 14:57 chlorthalidone AdvReac Intermediate Cramping Verified 01/15/22 14:57 felodipine AdvReac Intermediate fatigue Verified 01/15/22 14:57 furosemide AdvReac Intermediate Makes him Verified 01/15/22 14:57 sick. hydrochlorothiazide AdvReac Intermediate PVCs Verified 01/15/22 14:57 losartan [LOSARTAN] AdvReac Intermediate fatigue Verified 01/15/22 14:57 metoprolol [METOPROLOL] AdvReac Intermediate fatigue Verified 01/15/22 14:57 simvastatin AdvReac Intermediate Cramping Verified 01/15/22 14:57 of the Muscles spironolactone AdvReac Intermediate PVCs Verified 01/15/22 14:57 valsartan [VALSARTAN] AdvReac Intermediate fatigue Verified 01/15/22 14:57 amlodipine [AMLODIPINE] AdvReac Mild EDEMA Verified 01/15/22 14:57 lisinopril [LISINOPRIL] AdvReac Mild HIVES/ Verified 01/15/22 14:57 ITCHING Review of Systems Review of Systems ROS Unobtainable: All systems reviewed & are unremarkable except as noted in HPI and below Patient History Medical History Acquired hypothyroidism (08/21/07) Anxiety (06/23/12) Arthritis Cataract Chicken pox Chronic back pain (1989) Colon polyps (2001) 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 [place]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 (09/04/12) Degenerative lumbar disc (1964) Diastasis recti Diastolic congestive heart failure Erectile dysfunction (1997) Erectile dysfunction after prostate brachytherapy Essential hypertension (02/18/12) Frequent UTI Gastroesophageal reflux disease without esophagitis (1983) Hayfever (1967) Hearing loss History of brachytherapy (2006) History of nephrolithiasis History of renal calculi (06/23/12) Hx of brachytherapy Impotence (06/23/12) Malignant neoplasm of prostate (2005) Measles Mild intermittent asthma without complication (02/18/12) Mixed hyperlipidemia (02/18/12) Mumps Myocardial infarction (2012) Nephrolithiasis Normal cardiac stress test (2002) Osteoarthritis Panic attacks (1970) Plantar fasciitis Prostate cancer Thyroid disorder Thyroid nodule Surgical History H/O lithotripsy H/O prostate biopsy History of angioplasty (08/18/12) History of colonoscopy with polypectomy (2001) History of esophagogastroduodenoscopy (EGD) (1995) History of tonsillectomy (1944) History of vasectomy (1976) History of YAG laser capsulotomy of lens Normal colonoscopy (1984) Status post laser cataract surgery of both eyes (2005) Family History Father Heart disease Mother Heart disease Son Self-inflicted gunshot wound Son Bicycle rider struck in motor vehicle accident Social History Smoking Status: Never smoker Smoking Status: Never smoker alcohol intake frequency: 0-2 drinks per day Substance Use Type: does not use Exam Initial Vital Signs Initial Vital Signs: Vital Signs Temperature 98.1 F 12/26/22 20:03 Pulse Rate 75 12/26/22 20:03 Respiratory Rate 16 12/26/22 20:03 Blood Pressure 179/81 H 12/26/22 20:03 Pulse Oximetry 94 12/26/22 20:03 Oxygen Delivery Method Room Air 12/26/22 20:03 GENERAL: Alert pleasant well-appearing 82-year-old and in no acute distress. HEENT: Head atraumatic,EOMI, pupils reactive, face symmetric, moist mucous membranes CARDIOVASCULAR: Regular rate and rhythm without murmurs, rubs or gallops. RESPIRATORY: Breath sounds equal bilaterally, no wheezes rales or rhonchi. EXTREMITIES: Normal range of motion, no clubbing or edema. Neurovascularly intact NEUROLOGICAL: Alert and oriented x4. SKIN: Left arm erythema anterior there small wound distal forearm Course Orders Ordered: Discontinued Medications Cefazolin Sodium (Cephalexin 250 Mg Cap Prepack) 1 bottle MISC SEEINSTR ONE Stop: 12/26/22 22:56 Last Admin: 12/26/22 23:09 Dose: 1 bottle Documented By: VIKA Vital Signs Vital signs: Vital Signs - 8 hr 12/26/22 21:36 12/26/22 21:37 12/26/22 21:37 Pulse Rate 71 70 Blood Pressure 200/90 H Pulse Oximetry 96 95 Oxygen Delivery Method Room Air Room Air 12/26/22 22:00 12/26/22 22:30 12/26/22 22:57 Pulse Rate 67 62 67 Blood Pressure Pulse Oximetry 94 94 94 Oxygen Delivery Method 12/26/22 22:59 Pulse Rate Blood Pressure 221/101 H Pulse Oximetry Oxygen Delivery Method MDM - Skin/Abscess/Foreign Bdy MDM Narrative Medical decision making narrative: Patient 82-year-old male history of hypertension presenting today with 3 days of erythema on his left arm. They have actually been waiting awhile he is not septic he is afebrile does not want wait for blood work. Would just like a prescription. At this time I think this is reasonable. We will give him a prepack of Keflex and a prescription. Blood pressure is noted to be elevated. He reports that he is allergic to most blood pressure medications worse pressure is high. He has no other symptoms recommend outpatient follow-up and monitoring. Discharge Plan Departure Patient Disposition: Home Clinical Impression: Cellulitis of arm, left Instructions: DI for Cellulitis -- Adult Activity Restrictions/Additional Instructions: *You have been diagnosed with cellulitis left arm *What to do: Please monitor closely redness should start to improve in about 2 or 3 days. If redness is worsening if he should have taking confusion or other worsening symptoms he must return for evaluation *Continue to take medications as directed Keflex 500 mg 3 times a day *Follow up with your primary care provider in 2-3 days or call [phone] *Return to ER if you should have increasing redness confusion pain or any new, worsening or concerning symptoms Prescriptions: New cephalexin 500 mg capsule 500 mg PO TID Qty: 21 0RF No Action ASPIRIN (Aspir-Low) 81 mg PO QDAY 30 Days Qty: 0 0RF (DME) Disabled Parking Permit Qty: 1 0RF Rx Instructions: Patient qualifies for disabled parking as per the attached form. triamcinolone acetonide 0.1 % cream 1 applic TOP TID Qty: 30 0RF nitroglycerin [Nitrostat] 0.4 mg tablet, sublingual 0.4 mg Sublingual PRN PRN (Reason: chest pain) Qty: 15 1RF Rx Instructions: 1 tablet under tongue, repeat dose every 5 minutes as needed up to 3 doses in 15 minutes levothyroxine [Synthroid] 75 mcg tablet 75 mcg PO QAM Qty: 90 1RF fluticasone propion-salmeterol 500-50 mcg/dose blister with device 1 inh inhalation BID Qty: 180 1RF hydrocodone-acetaminophen 5-325 mg tablet 1 - 2 tab PO Q4H PRN (Reason: pain) Qty: 60 0RF Rx Instructions: Exempt albuterol sulfate [Proventil HFA] 90 mcg/actuation HFA aerosol inhaler 2 puff inhalation QIDP Qty: 8.5 5RF acetaminophen [Tylenol Extra Strength] 500 mg tablet 1,000 mg PO BID atorvastatin 40 mg tablet 20 mg PO BID lidocaine 5 % adhesive patch,medicated 1 patch topical Q24H PRN (Reason: pain) Qty: 30 0RF Rx Instructions: leave on most painful area for up to 12 hrs cetirizine [Aller-Carmita] 10 mg tablet 5 mg PO DAILY PRN Referrals: Bakari Arrington MD [Primary Care Provider] - Stand Alone Forms: Patient Portal/API
[2022-12-26] MEDS: cephALEXin 250 MG CAP PREPACK 1 BOTTLE MISC (23:09)
== END 2022-12-26 23:11 | disposition home or self-care (01) ==
PROVIDERS: Emergency Provider Emergency Medicine; PCP Internal Medicine
DX: L03.114 Cellulitis of left upper limb (principal)
CPT/HCPCS: 99281; 99283

== ENCOUNTER → 2023-01-22 06:55 | Outpatient (CLI) | payer MEDICARE, OTHER, SELFPAY ==
[2023-01-22 08:02] LABS: Alanine Aminotransferase 33 IU/L (<50); Albumin 4.2 g/dL (3.5-5.0); Albumin Globulin Ratio 1.5 (1.0-2.8); Alkaline Phosphatase 78 U/L (38-126); Aspartate Aminotransferase 40 IU/L (17-59); BUN Creatinine Ratio 21.1 (6-22); Bilirubin Total 0.9 mg/dL (0.2-1.3); Blood Urea Nitrogen 19 mg/dL (9-20); Calcium 8.8 mg/dL (8.4-10.2); Carbon Dioxide 30 mmol/L (22-32); Chloride 100 mmol/L (98-107); Cholesterol 153 mg/dL (140-199); Estimated Glomerular Filt Rate > 60 mL/min (>60); Globulin 2.8 g/dL (1.7-4.1); Glucose 113 mg/dL (80-110); HDL Cholesterol 84 mg/dL (40-60); HEMOLYSIS 49 (0-50); LDL Cholesterol Calculated 58 mg/dL (<100); Potassium 4.4 mmol/L (3.4-5.1); Sodium 134 mmol/L (137-145); Triglycerides 57 mg/dL (35-150)
[2023-01-22 08:14] LABS: Free T4, Direct Thyroxine 0.98 ng/dL (0.78-2.19)
[2023-01-22 09:26] LABS: Thyroid Stimulating Hormone 2.94 uIU/mL (0.47-4.68)
== END ==
PROVIDERS: PCP Internal Medicine; Referring Provider Internal Medicine; Visit Provider Internal Medicine
DX: E03.9 Hypothyroidism, unspecified (principal); E04.1 Nontoxic single thyroid nodule; E78.2 Mixed hyperlipidemia; I10 Essential (primary) hypertension
CPT/HCPCS: 36415; 80053; 80061; 84439; 84443